=== PATIENT | female | born 1965 | race Caucasian/White ===

== ENCOUNTER 2023-08-26 13:49 | Observation (INO) | payer OTHER ==
[2023-08-26] MEDS ORDERED: DILTIAZEM DRIP BOLUS FROM BAG 1 MG SOLN IV ONE (14:25)
--- NOTE | 2023-08-26 14:28 | ED ---
General Adult HPI - General Chief complaint: Chest Pain Stated complaint: chest pain Time Seen by Provider: 08/26/23 13:57 Source: patient, EMS, RN notes reviewed Mode of arrival: EMS Limitations: no limitations - History of Present Illness Initial comments: Patient is a pleasant 57-year-old female presenting to the emergency department with concerns for chest discomfort. Onset of symptoms was a couple hours ago while doing dishes. Patient has rash or in her left upper chest. Patient has mild associated dyspnea. No nausea. No diaphoresis. Patient has had some exertional fatigue and dyspnea over the past couple of days. Patient stopped eliquis secondary to thinking her symptoms were caused from that. Patient states she was started on eliquis secondary to postoperative prevention of blood clots following stomach stapling surgery she had 9 days ago. No abdominal pain. No leg pain or leg swelling. - Related Data Home Medications Medication Instructions Recorded Confirmed Omeprazole 20 mg PO BID 08/26/23 08/26/23 Ondansetron [Zofran] 4 mg PO QID PRN 08/26/23 08/26/23 Scopolamine [Scopolamine 1 MG/72 1 patch TRANSDERM Q72H PRN 08/26/23 08/26/23 HR patch] atenoloL 50 mg PO BID 08/26/23 08/26/23 atenoloL 50 mg PO DAILY PRN 08/26/23 08/26/23 traMADol HCL 50 mg PO Q6H PRN 08/26/23 08/26/23 Allergies Allergy/AdvReac Type Severity Reaction Status Date / Time Sulfa (Sulfonamide Allergy Difficulty Verified 08/26/23 15:09 Antibiotics) breathing codeine AdvReac Vomiting Verified 08/26/23 15:09 metoclopramide [From Reglan] AdvReac Rapid Verified 08/26/23 15:09 Heart Rate morphine AdvReac Rapid Verified 08/26/23 15:09 Heart Rate Review of Systems ROS Statement: Those systems with pertinent positive or pertinent negative responses have been documented in the HPI. ROS Other: All systems not noted in ROS Statement are negative. Constitutional: Denies: fever Eyes: Denies: eye pain ENT: Denies: ear pain Respiratory: Reports: as per HPI. Denies: cough Cardiovascular: Reports: as per HPI, chest pain, palpitations Endocrine: Denies: fatigue Gastrointestinal: Denies: abdominal pain Skin: Denies: rash Neurological: Denies: weakness Past Medical History Past Medical History: Hypertension History of Any Multi-Drug Resistant Organisms: None Reported Past Surgical History: Bariatric Surgery Additional Past Surgical History / Comment(s): Gastric Bypass Past Psychological History: No Psychological Hx Reported Past Drug Use History: Marijuana General Exam Limitations: no limitations General appearance: alert, in no apparent distress Head exam: Present: normocephalic Eye exam: Present: normal appearance Respiratory exam: Present: normal lung sounds bilaterally Cardiovascular Exam: Present: tachycardia, irregular rhythm Expanded Peripheral pulses: 2+: Radial (R), Radial (L), Dorsalis Pedis (R), Dorsalis Pedis (L) GI/Abdominal exam: Present: soft. Absent: tenderness Extremities exam: Present: normal inspection. Absent: pedal edema, calf tenderness Neurological exam: Present: alert Psychiatric exam: Present: normal affect, normal mood Skin exam: Present: normal color Course Vital Signs 08/26/23 08/26/23 08/26/23 13:53 14:10 14:20 Temperature 98.4 F Pulse Rate 128 H 144 H 151 H Respiratory 18 18 20 Rate Blood Pressure 96/50 95/71 92/74 O2 Sat by Pulse 100 99 Oximetry 08/26/23 08/26/23 08/26/23 14:31 14:40 14:45 Temperature Pulse Rate 151 H 144 H Respiratory 18 18 Rate Blood Pressure 92/74 103/69 O2 Sat by Pulse 94 L 97 Oximetry 08/26/23 08/26/23 08/26/23 14:50 14:51 15:00 Temperature Pulse Rate 152 H 129 H 110 H Respiratory 12 18 27 H Rate Blood Pressure 103/69 118/67 118/87 O2 Sat by Pulse 93 L 92 L 99 Oximetry 08/26/23 08/26/23 08/26/23 15:10 15:20 15:29 Temperature Pulse Rate 118 H 116 H 121 H Respiratory 31 H 12 20 Rate Blood Pressure 89/55 158/101 132/117 O2 Sat by Pulse 99 96 98 Oximetry 08/26/23 08/26/23 08/26/23 15:30 15:40 15:44 Temperature Pulse Rate 111 H 80 86 Respiratory 10 L 8 L 18 Rate Blood Pressure 158/101 132/117 132/117 O2 Sat by Pulse 96 95 96 Oximetry 08/26/23 08/26/2323 15:50 16:00 16:04 Temperature Pulse Rate 86 84 84 Respiratory 12 22 Rate Blood Pressure 103/63 103/63 97/70 O2 Sat by Pulse 97 95 97 Oximetry EKG Findings - EKG Results: EKG: interpreted by ERMD (Left axis. Nonspecific ST-T.), normal QRS EKG shows: tachycardia, atrial fibrillation Medical Decision Making - Medical Decision Making Was pt. sent in by a medical professional or institution ([facility], [employer], urgent care, hospital, or retirement...) When possible be specific @ -No Did you speak to anyone other than the patient for history (EMS, parent, family, police, friend...)? What history was obtained from this source @ -No Did you review nursing and triage notes (agree or disagree)? Why? @ -I reviewed and agree with nursing and triage notes Were old charts reviewed (outside hosp., previous admission, EMS record, old EKG, old radiological studies, urgent care reports/EKG's, retirement records)? Report findings @ -No old charts were reviewed Differential Diagnosis (chest pain, altered mental status, abdominal pain women, abdominal pain men, vaginal bleeding, weakness, fever, dyspnea, syncope, headache, dizziness, GI bleed, back pain, seizure, CVA, palpatations, mental health, musculoskeletal)? @ -Differential Chest Pain: Stable Angina, Unstable Angina, STEMI, NSTEMI Aortic Dissection, Pneumothorax, Musculoskeletal, Esophageal Spasm GERD, Cholecystitis, Pancreatitis, Zoster, this is not meant to be an all-inclusive list. EKG interpreted by me (3pts min.). @ -As above X-rays interpreted by me (1pt min.). @ -Chest x-ray shows no acute process CT interpreted by me (1pt min.). @ -None done U/S interpreted by me (1pt. min.). @ -None done What testing was considered but not performed or refused? (CT, X-rays, U/S, labs)? Why? @ -None What meds were considered but not given or refused? Why? @ -None Did you discuss the management of the patient with other professionals (professionals i.e. [facility], [employer], lab, RT, psych nurse, child welfare social worker, human resources advisor, teacher, data officer, case operator)? Give summary @ -Case was discussed with practitioner Fang, who will admit covering Dr. Mathis, who will admit covering hospital call. Was smoking cessation discussed for >3mins.? @ -No Was critical care preformed (if so, how long)? @ -32 minutes critical care time Were there social determinants of health that impacted care today? How? (Homelessness, low income, unemployed, alcoholism, drug addiction, transportation, low edu. Level, literacy, decrease access to med. care, [facility], rehab)? @ -No Was there de-escalation of care discussed even if they declined (Discuss DNR or withdrawal of care, Hospice)? DNR status @ -No What co-morbidities impacted this encounter? (DM, HTN, Smoking, COPD, CAD, Cancer, CVA, ARF, Chemo, Hep., AIDS, mental health diagnosis, sleep apnea, morbid obesity)? @ -None Was patient admitted / discharged? Hospital course, mention meds given and route, prescriptions, significant lab abnormalities, going to OR and other pertinent info. @ -Patient reevaluated and symptoms have improved. Patient still having some mild chest discomfort. Heart rate has improved 84. Patient will be admitted, orders written. Cardiology will be placed on consult. Undiagnosed new problem with uncertain prognosis? @ -No Drug Therapy requiring intensive monitoring for toxicity (Heparin, Nitro, Insulin, Cardizem)? @ -Patient is on Cardizem drip Were any procedures done? @ -No Diagnosis/symptom? @ -A. fib with RVR Acute, or Chronic, or Acute on Chronic? @ -Acute Uncomplicated (without systemic symptoms) or Complicated (systemic symptoms)? @ -default Side effects of treatment? @ -No Exacerbation, Progression, or Severe Exacerbation? @ -No Poses a threat to life or bodily function? How? (Chest pain, [place], [place], pneumonia, PE, COPD, DKA, ARF, appy, cholecystitis, CVA, Diverticulitis, Homicidal, Suicidal, threat to staff... and all critical care pts) @ -No - Lab Data Result diagrams: 08/26/23 14:25 08/26/23 14:25 Lab Results 08/26/23 08/26/23 08/26/23 Range/Units 14:25 14:25 14:25 WBC 7.7 (3.8-10.6) k/uL RBC 3.70 L (3.80-5.40) m/uL Hgb 11.6 (11.4-16.0) gm/dL Hct 34.3 (34.0-46.0) % MCV 92.7 (80.0-100.0) fL MCH 31.4 (25.0-35.0) pg MCHC 33.9 (31.0-37.0) g/dL RDW 13.2 (11.5-15.5) % Plt Count 369 (150-450) k/uL MPV 7.8 Neutrophils % 72 % Lymphocytes % 18 % Monocytes % 5 % Eosinophils % 3 % Basophils % 0 % Neutrophils # 5.5 (1.3-7.7) k/uL Lymphocytes # 1.4 (1.0-4.8) k/uL Monocytes # 0.4 (0-1.0) k/uL Eosinophils # 0.3 (0-0.7) k/uL Basophils # 0.0 (0-0.2) k/uL PT 10.8 (9.0-12.0) sec INR 1.0 (<1.2) APTT 20.6 L (22.0-30.0) sec Sodium 140 (137-145) mmol/L Potassium 3.7 (3.5-5.1) mmol/L Chloride 108 H (98-107) mmol/L Carbon Dioxide 17 L (22-30) mmol/L Anion Gap 15 mmol/L BUN 24 H (7-17) mg/dL Creatinine 0.86 (0.52-1.04) mg/dL Est GFR (CKD-EPI)AfAm 86 (>60 ml/min/1.73 sqM) Est GFR (CKD-EPI)NonAf 75 (>60 ml/min/1.73 sqM) Glucose 88 (74-99) mg/dL Calcium 9.4 (8.4-10.2) mg/dL Magnesium 1.7 (1.6-2.3) mg/dL Total Bilirubin 1.3 (0.2-1.3) mg/dL AST 33 (14-36) U/L ALT 20 (4-34) U/L Alkaline Phosphatase 62 (38-126) U/L Troponin I (0.000-0.034) ng/mL NT-Pro-B Natriuret Pep 201 pg/mL Total Protein 6.7 (6.3-8.2) g/dL Albumin 3.6 (3.5-5.0) g/dL TSH 1.200 (0.465-4.680) mIU/L Free T4 2.49 H (0.78-2.19) ng/dL 08/26/23 Range/Units 14:25 WBC (3.8-10.6) k/uL RBC (3.80-5.40) m/uL Hgb (11.4-16.0) gm/dL Hct (34.0-46.0) % MCV (80.0-100.0) fL MCH (25.0-35.0) pg MCHC (31.0-37.0) g/dL RDW (11.5-15.5) % Plt Count (150-450) k/uL MPV Neutrophils % % Lymphocytes % % Monocytes % % Eosinophils % % Basophils % % Neutrophils # (1.3-7.7) k/uL Lymphocytes # (1.0-4.8) k/uL Monocytes # (0-1.0) k/uL Eosinophils # (0-0.7) k/uL Basophils # (0-0.2) k/uL PT (9.0-12.0) sec INR (<1.2) APTT (22.0-30.0) sec Sodium (137-145) mmol/L Potassium (3.5-5.1) mmol/L Chloride (98-107) mmol/L Carbon Dioxide (22-30) mmol/L Anion Gap mmol/L BUN (7-17) mg/dL Creatinine (0.52-1.04) mg/dL Est GFR (CKD-EPI)AfAm (>60 ml/min/1.73 sqM) Est GFR (CKD-EPI)NonAf (>60 ml/min/1.73 sqM) Glucose (74-99) mg/dL Calcium (8.4-10.2) mg/dL Magnesium (1.6-2.3) mg/dL Total Bilirubin (0.2-1.3) mg/dL AST (14-36) U/L ALT (4-34) U/L Alkaline Phosphatase (38-126) U/L Troponin I 0.024 (0.000-0.034) ng/mL NT-Pro-B Natriuret Pep pg/mL Total Protein (6.3-8.2) g/dL Albumin (3.5-5.0) g/dL TSH (0.465-4.680) mIU/L Free T4 (0.78-2.19) ng/dL Critical Care Time Critical Care Time: Yes Total Critical Care Time: 32 Disposition Clinical Impression: Atrial fibrillation with RVR Disposition: ADMITTED IP TO THIS HOSP Is patient prescribed a controlled substance at d/c from ED?: No Referrals: Dwight Aguirre DO [Primary Care Provider] - 1-2 days Time of Disposition: 16:48
[2023-08-26] MEDS ORDERED: DILTIAZEM 125 MG in SODIUM CHLORIDE 0.9% 100 ML IV SCH (14:30)
--- NOTE | 2023-08-26 14:40 | XR ---
EXAMINATION TYPE: XR chest 2V DATE OF EXAM: 08/26/2023 COMPARISON: NONE HISTORY: Dysrhythmia TECHNIQUE: Frontal and lateral views of the chest are obtained. FINDINGS: There is no focal air space opacity, pleural effusion, or pneumothorax seen. The cardiac silhouette size is within normal limits. The osseous structures are intact. IMPRESSION: No acute cardiopulmonary process.
[2023-08-26 14:45] LABS: Basophils % (A) 0 %; Eosinophils # (A) 0.3 k/uL (0-0.7); Eosinophils % (A) 3 %; HCT 34.3 % (34.0-46.0); HGB 11.6 gm/dL (11.4-16.0); Lymphocytes # (A) 1.4 k/uL (1.0-4.8); Lymphocytes % (A) 18 %; MCH 31.4 pg (25.0-35.0); MCHC 33.9 g/dL (31.0-37.0); MCV 92.7 fL (80.0-100.0); Mean Platelet Volume 7.8; Monocytes # (A) 0.4 k/uL (0-1.0); Monocytes % (A) 5 %; Neutrophils # (A) 5.5 k/uL (1.3-7.7); Neutrophils % (A) 72 %; Platelet Count 369 k/uL (150-450); RDW 13.2 % (11.5-15.5); WBC 7.7 k/uL (3.8-10.6)
[2023-08-26 15:04] LABS: Prothrombin Time 10.8 sec (9.0-12.0)
[2023-08-26 15:18] LABS: Partial Thromboplastin Time 20.6 sec (22.0-30.0)
[2023-08-26 15:24] LABS: ALT 20 U/L (4-34); AST 33 U/L (14-36); African American GFR (CKD) 86 (>60 ml/min/1.73 sqM); Albumin 3.6 g/dL (3.5-5.0); Alkaline Phosphatase 62 U/L (38-126); Anion Gap 15 mmol/L; Blood Urea Nitrogen 24 mg/dL (7-17); Calcium 9.4 mg/dL (8.4-10.2); Carbon Dioxide 17 mmol/L (22-30); Chloride 108 mmol/L (98-107); Glucose 88 mg/dL (74-99); Magnesium 1.7 mg/dL (1.6-2.3); Non-African American GFR(CKD) 75 (>60 ml/min/1.73 sqM); Potassium 3.7 mmol/L (3.5-5.1); Sodium 140 mmol/L (137-145); Total Bilirubin 1.3 mg/dL (0.2-1.3); Total Protein 6.7 g/dL (6.3-8.2)
[2023-08-26 15:33] LABS: NT-Pro-B-Type Natriuretic Pept 201 pg/mL
[2023-08-26 15:41] LABS: T4, Free (Free Thyroxine) 2.49 ng/dL (0.78-2.19)
[2023-08-26] MEDS ORDERED: NALOXONE 0.4 MG/ML 1 ML VIAL IV PRN (16:48)
[2023-08-27 08:36] LABS: Basophils % (A) 0 %; Eosinophils # (A) 0.3 k/uL (0-0.7); Eosinophils % (A) 3 %; HCT 32.7 % (34.0-46.0); HGB 10.8 gm/dL (11.4-16.0); Lymphocytes # (A) 1.3 k/uL (1.0-4.8); Lymphocytes % (A) 17 %; MCH 30.8 pg (25.0-35.0); MCHC 33.1 g/dL (31.0-37.0); MCV 93.2 fL (80.0-100.0); Mean Platelet Volume 7.9; Monocytes # (A) 0.5 k/uL (0-1.0); Monocytes % (A) 6 %; Neutrophils # (A) 5.6 k/uL (1.3-7.7); Neutrophils % (A) 72 %; Platelet Count 326 k/uL (150-450); RBC 3.51 m/uL (3.80-5.40); RDW 13.7 % (11.5-15.5); WBC 7.8 k/uL (3.8-10.6)
[2023-08-27 08:56] LABS: ALT 18 U/L (4-34); AST 27 U/L (14-36); African American GFR (CKD) >90 (>60 ml/min/1.73 sqM); Albumin 3.4 g/dL (3.5-5.0); Alkaline Phosphatase 51 U/L (38-126); Anion Gap 11 mmol/L; Blood Urea Nitrogen 21 mg/dL (7-17); Calcium 8.8 mg/dL (8.4-10.2); Carbon Dioxide 22 mmol/L (22-30); Chloride 107 mmol/L (98-107); Glucose 79 mg/dL (74-99); Non-African American GFR(CKD) 83 (>60 ml/min/1.73 sqM); Potassium 3.5 mmol/L (3.5-5.1); Sodium 140 mmol/L (137-145); Total Bilirubin 0.9 mg/dL (0.2-1.3); Total Protein 6.1 g/dL (6.3-8.2)
[2023-08-27] MEDS ORDERED: PANTOPRAZOLE 40 MG/10 ML VIAL IV SCH (09:00)
[2023-08-27] MEDS: atenoloL 50 MG TAB PO SCH ×2 (10:15→21:10)
--- NOTE | 2023-08-27 12:25 | CA ---
Transthoracic Echo Report Name: Jacqueline Carvajal Age: 57 Gender: F : 1965 Exam Date: 08/27/2023 09:19 Exam Location: [facility] Ht (in): 62 Wt (lb): 190 Ordering Physician: Bandar Miranda DO Attending/Referring Phys: Document Image Technician Myrna Lee RDCS Procedure CPT: Indications: a fib Cardiac Hx: Technical Quality: Fair Contrast 1: Total Dose (mL): Contrast 2: Total Dose (mL): MEASUREMENTS (Male / Female) Normal Values 2D ECHO LV Diastolic Diameter PLAX 3.4 cm 4.2 - 5.9 / 3.9 - 5.3 cm LV Systolic Diameter PLAX 2.3 cm IVS Diastolic Thickness 1.7 cm 0.6 - 1.0 / 0.6 - 0.9 cm LVPW Diastolic Thickness 1.5 cm 0.6 - 1.0 / 0.6 - 0.9 cm LV Relative Wall Thickness 1.0 RV Internal Dim ED PLAX 2.6 cm LA Volume 52.5 cm??? 18 - 58 / 22 - 52 cm??? M-MODE Aortic Root Diameter MM 3.3 cm LA Systolic Diameter MM 5.1 cm LA Ao Ratio MM 1.6 AV Cusp Separation MM 2.0 cm DOPPLER AV Peak Velocity 165.5 cm/s AV Peak Gradient 10.9 mmHg AV Mean Velocity 116.3 cm/s AV Mean Gradient 6.0 mmHg AV Velocity Time Integral 27.0 cm LVOT Peak Velocity 122.7 cm/s LVOT Peak Gradient 6.0 mmHg LVOT Velocity Time Integral 24.5 cm MV Area PHT 2.7 cm??? Mitral E Point Velocity 78.0 cm/s Mitral A Point Velocity 117.0 cm/s Mitral E to A Ratio 0.7 MV Deceleration Time 284.2 ms MV E' Velocity 4.9 cm/s Mitral E to MV E' Ratio 15.9 TR Peak Velocity 175.5 cm/s TR Peak Gradient 12.3 mmHg Right Ventricular Systolic Press 17.3 mmHg FINDINGS Left Ventricle Moderately increased left ventricular wall thickness. Left ventricular cavity size normal. Normal left ventricular systolic function with no obvious regional wall motion abnormalities. Left ventricular ejection fraction is estimated at 55-60%. Right Ventricle Normal right ventricular size and function. Right ventricular systolic pressure within normal limits. Right Atrium Normal right atrial size. Left Atrium Normal left atrial size. Mitral Valve Structurally normal mitral valve. Mild mitral annular calcification. Mild mitral regurgitation. Aortic Valve Trileaflet aortic valve. No aortic valve stenosis or regurgitation. Tricuspid Valve Structurally normal tricuspid valve. Mild tricuspid regurgitation. Pulmonic Valve Trace pulmonic regurgitation. Pericardium No pericardial effusion. Aorta Normal size aortic root and proximal ascending aorta. CONCLUSIONS LVH with preserved systolic function Previewed by: Dr. Wicho Ambrocio MD (Electronically Signed) Final Date: 27 August 2023 12:24
--- NOTE | 2023-08-27 12:26 | P.HPIM ---
History of Present Illness H&P Date: 08/27/23 Chief Complaint: Chest pain 57-year-old female, history of hypertension, presenting to the emergency department with concerns for chest discomfort. Onset of symptoms was a couple hours ago while doing dishes. Patient has rash or in her left upper chest. Patient has mild associated dyspnea. No nausea. No diaphoresis. Patient has had some exertional fatigue and dyspnea over the past couple of days. Patient stopped eliquis secondary to thinking her symptoms were caused from that. Patient states she was started on eliquis secondary to postoperative prevention of blood clots following stomach stapling surgery she had 9 days ago. No abdominal pain. No leg pain or leg swelling. Blood work completed in ED reveals WBC of 7.8, hemoglobin of 11.6 dropping down to 10.8 this morning, d-dimer is elevated at 5.73, sodium of 140, potassium 3.5, BUN/creatinine of 21/0.79, initial troponin upon arrival to ED was 0.0-4 and has trended up to 0.036, TSH normal at 1.2, free T4 of 2.49, free T3 is pending EKG shows atrial fibrillation with RVR with heart rate of [address] depression Chest x-ray is negative for any acute cardiopulmonary process -- In the ED patient was placed on IV Cardizem infusion which improved heart rate to 84 - Patient is being admitted for further evaluation and treatment Review of Systems REVIEW OF SYSTEMS: CONSTITUTIONAL: No fever, no malaise, no fatigue. HEENT: No recent visual problems or hearing problems. Denied any sore throat. CARDIOVASCULAR: Complains of chest pain, orthopnea, PND, no palpitations, no syncope. PULMONARY: No shortness of breath, no cough, no hemoptysis. GASTROINTESTINAL: No diarrhea, no nausea, no vomiting, no abdominal pain. NEUROLOGICAL: No headaches, no weakness, no numbness. HEMATOLOGICAL: Denies any bleeding or petechiae. GENITOURINARY: Denies any burning micturition, frequency, or urgency. MUSCULOSKELETAL/RHEUMATOLOGICAL: Denies any joint pain, swelling, or any muscle pain. ENDOCRINE: Denies any polyuria or polydipsia. The rest of the 14-point review of systems is negative. Past Medical History Past Medical History: Hypertension History of Any Multi-Drug Resistant Organisms: None Reported Past Surgical History: Bariatric Surgery Additional Past Surgical History / Comment(s): Gastric Bypass Past Psychological History: No Psychological Hx Reported Past Drug Use History: Marijuana Medications and Allergies Home Medications Medication Instructions Recorded Confirmed Type Omeprazole 20 mg PO BID 08/26/23 08/26/23 History Ondansetron [Zofran] 4 mg PO QID PRN 08/26/23 08/26/23 History Scopolamine [Scopolamine 1 MG/72 1 patch TRANSDERM Q72H PRN 08/26/23 08/26/23 History HR patch] atenoloL 50 mg PO BID 08/26/23 08/26/23 History atenoloL 50 mg PO DAILY PRN 08/26/23 08/26/23 History traMADol HCL 50 mg PO Q6H PRN 08/26/23 08/26/23 History Allergies Allergy/AdvReac Type Severity Reaction Status Date / Time Sulfa (Sulfonamide Allergy Difficulty Verified 08/26/23 15:09 Antibiotics) breathing codeine AdvReac Vomiting Verified 08/26/23 15:09 metoclopramide [From Reglan] AdvReac Rapid Verified 08/26/23 15:09 Heart Rate morphine AdvReac Rapid Verified 08/26/23 15:09 Heart Rate Physical Exam Vitals: Vital Signs Temp Pulse Pulse Resp BP BP Pulse Ox 08/27/23 11:16 75 16 129/82 99 08/27/23 10:20 98.4 F 87 18 137/95 98 08/27/23 07:35 98.4 F 84 17 127/78 98 08/27/23 05:47 74 18 120/72 99 08/27/23 01:47 71 18 112/71 97 08/26/23 23:11 73 18 98/66 98 08/26/23 19:55 78 18 107/83 08/26/23 19:33 18 08/26/23 19:30 74 12 96/76 08/26/23 19:00 80 12 96/76 08/26/23 18:30 80 27 H 96/76 08/26/23 18:00 81 17 96/76 08/26/23 17:30 80 12 96/76 08/26/23 17:10 79 24 94/67 08/26/23 17:00 81 16 116/95 08/26/23 16:50 81 18 116/95 98 08/26/23 16:40 82 18 132/94 97 08/26/23 16:30 82 18 96/69 99 08/26/23 16:20 82 16 96/69 98 08/26/23 16:10 84 19 97/70 94 L 08/26/23 16:04 84 97/70 97 08/26/23 16:00 84 22 103/63 95 08/26/23 15:50 86 12 103/63 97 08/26/23 15:44 86 18 132/117 96 08/26/23 15:40 80 8 L 132/117 95 08/26/23 15:30 111 H 10 L 158/101 96 08/26/23 15:29 121 H 20 132/117 98 08/26/23 15:20 116 H 12 158/101 96 08/26/23 15:10 118 H 31 H 89/55 99 08/26/23 15:00 110 H 27 H 118/87 99 08/26/23 14:51 129 H 18 118/67 92 L 08/26/23 14:50 152 H 12 103/69 93 L 08/26/23 14:45 144 H 18 103/69 97 08/26/23 14:40 151 H 18 94 L 08/26/23 14:31 92/74 08/26/23 14:20 151 H 20 92/74 99 08/26/23 14:10 144 H 18 95/71 08/26/23 13:53 98.4 F 128 H 18 96/50 100 PHYSICAL EXAMINATION: GENERAL: The patient is alert and oriented x3, not in any acute distress. Well developed, well nourished. HEENT: Pupils are round and equally reacting to light. EOMI. No scleral icterus. No conjunctival pallor. Normocephalic, atraumatic. No pharyngeal erythema. No thyromegaly. CARDIOVASCULAR: S1 and S2 present. No murmurs, rubs, or gallops. PULMONARY: Chest is clear to auscultation, no wheezing or crackles. ABDOMEN: Soft, nontender, nondistended, normoactive bowel sounds. No palpable organomegaly. MUSCULOSKELETAL: No joint swelling or deformity. EXTREMITIES: No cyanosis, clubbing, or pedal edema. NEUROLOGICAL: Gross neurological examination did not reveal any focal deficits. SKIN: No rashes. Results CBC & Chem 7: 08/27/23 06:54 08/27/23 06:54 Labs: Abnormal Lab Results - Last 24 Hours (Table) 08/26/23 08/26/23 08/26/23 Range/Units 14:25 14:25 14:25 RBC 3.70 L (3.80-5.40) m/uL Hgb (11.4-16.0) gm/dL Hct (34.0-46.0) % APTT 20.6 L (22.0-30.0) sec D-Dimer (<0.60) mg/L FEU Chloride 108 H (98-107) mmol/L Carbon Dioxide 17 L (22-30) mmol/L BUN 24 H (7-17) mg/dL Troponin I (0.000-0.034) ng/mL Total Protein (6.3-8.2) g/dL Albumin (3.5-5.0) g/dL Free T4 2.49 H (0.78-2.19) ng/dL 08/26/23 08/27/23 08/27/23 Range/Units 21:00 06:54 06:54 RBC 3.51 L (3.80-5.40) m/uL Hgb 10.8 L (11.4-16.0) gm/dL Hct 32.7 L (34.0-46.0) % APTT (22.0-30.0) sec D-Dimer (<0.60) mg/L FEU Chloride (98-107) mmol/L Carbon Dioxide (22-30) mmol/L BUN 21 H (7-17) mg/dL Troponin I 0.036 H* (0.000-0.034) ng/mL Total Protein 6.1 L (6.3-8.2) g/dL Albumin 3.4 L (3.5-5.0) g/dL Free T4 (0.78-2.19) ng/dL 08/27/23 Range/Units 09:34 RBC (3.80-5.40) m/uL Hgb (11.4-16.0) gm/dL Hct (34.0-46.0) % APTT (22.0-30.0) sec D-Dimer 5.73 H (<0.60) mg/L FEU Chloride (98-107) mmol/L Carbon Dioxide (22-30) mmol/L BUN (7-17) mg/dL Troponin I (0.000-0.034) ng/mL Total Protein (6.3-8.2) g/dL Albumin (3.5-5.0) g/dL Free T4 (0.78-2.19) ng/dL Assessment and Plan Assessment: 1. New onset atrial fibrillation with RVR - Patient has been placed on IV Cardizem infusion; home dose of atenolol 50 mg twice a day since - We will monitor EKG and trend troponin - Consult cardiology for further recommendations 2. Elevated d-dimer/chest pain; we will order stat CT of the chest with PE protocol and bilateral lower extremity venous Doppler - Hold off on anticoagulation until results are available 3. Elevated troponin; possibly rate related; troponin on presentation to ED was within normal range at 0.0-4 with the third set increasing to 0.36 4. Anemia; hemoglobin down to 10.8 from 11.6 upon admission; no complaints of hemoptysis, hematemesis or any overt bleeding - We will monitor H&H closely; order stool occult blood; start patient on Protonix - Further recommendations pending test results 5. Elevated free T4; TSH remains within normal limits; free T3 is pending - Likely sick euthyroid versus hyperthyroidism - Consult endocrinology 6. Mild ESSIE; BUN slightly elevated at 24 with normal creatinine of 0.86 upon admission; BUN trending down to 21; increased oral fluid intake is recommended; we will monitor strict CORETTA's, daily weights, renal function and electrolytes - Avoid nephrotoxins and hypotension 7. Hypertension; continue with home dose of atenolol 50 mg twice a day DVT prophylaxis; SCDs/subcu heparin CODE STATUS; full code
--- NOTE | 2023-08-27 13:26 | P.CRDCN ---
History of Present Illness Consult date: 08/27/23 Consult reason: atrial fibrillation History of present illness: This is Riley Kimball NP, I'm dictating on behalf of Dr. Ambrocio's H&P and A&P The patient was interviewed and examined. HPI: Patient is a pleasant 57-year-old female with a past medical history of hypertension and recent gastric bypass surgery who presented to the hospital after experiencing chest tightness and weakness at home. Patient reports that she was doing dishes at the sink in her home, when she suddenly felt like a band had been wrapped around her chest. She states she also felt weak at that time. She reports that she went into her living room and sat in a chair, trying to relax. She states at that time she felt like her heart was "flopping" in her chest. She got concerned and called 911 to bring her to the hospital for evaluation. In the emergency department, and the patient was found to be in new onset atrial fibrillation, with a heart rate in the 140s. Patient was given one bolus of IV Cardizem, which did improve her heart rate significantly. C ardiology was subsequently consulted for the new onset A. fib. Today the patient reports she's feeling good. Patient converted at some point during the night, and is now in normal sinus rhythm on telemetry. She is denying chest pain, shortness of breath, and heart palpitations. ROS: [No fever, chills, or rigors] [no cough, phlegm, or expectoration] [no nausea, vomiting, or diarrhea] [no hematuria, dysuria] [no musculoskelatal complaints] [no strokes or seizures] [no skin lesions] EXAMINATION: GENERAL: Well-appearing, well-nourished and in no acute distress. NECK: Supple without JVD or thyromegaly. LUNGS: Breath sounds clear to auscultation bilaterally. Respiration equal and unlabored. No wheezes, rales or rhonchi. HEART: Regular rate and rhythm without murmurs, rubs or gallops. S1 and S2 heard. EXTREMITIES: Normal range of motion, no edema. No clubbing or cyanosis. Peripheral pulses intact and strong. REVIEW OF LABS, ECG & MEDICAL DATA: LABS: White count 7.8, hemoglobin 10.8, d-dimer 5.73, sodium 140, potassium 3.5, BUN 21, creatinine 0.79, troponin 3-0.024, 0.034, 0.036, BNP 201, TSH 1.2 EKG: Atrial fibrillation with rapid ventricular response IMAGING: Chest x-ray dated 08/26/2023 demonstrates no acute cardiopulmonary process. Echocardiogram dated 08/26/2023 demonstrates LVH with preserved systolic function. VITALS: Temp 98.4, pulse 84, respirations 17, blood pressure 127/78, O2 saturation 98% on room air IMPRESSION: 1. New onset atrial fibrillation with rapid ventricular response. 2. History of hypertension 3. History of prediabetes PLAN: Check d-dimer. If elevated recommend CT angiogram and bilateral lower extremity Dopplers. Patient likely has postoperative new onset A. fib, which will likely resolve on its own after surgery is completely healed. Resume atenolol 50 mg twice a day. Discontinue Cardizem. Obtained stat echocardiogram, demonstrates left ventricular hypertrophy with preserved systolic function, with no valvular abnormalities. If CT angiogram and Dopplers are negative, patient may be discharged from a cardiology standpoint. No need for current anticoagulation, as patient was only in A. fib for a short period of time. She can follow-up in the office. Thank you for the consult and allowing us to participate in the care of this patient. Past Medical History Past Medical History: Hypertension History of Any Multi-Drug Resistant Organisms: None Reported Past Surgical History: Bariatric Surgery Additional Past Surgical History / Comment(s): Gastric Bypass Past Anesthesia/Blood Transfusion Reactions: No Reported Reaction Past Psychological History: No Psychological Hx Reported Past Drug Use History: Marijuana Medications and Allergies Home Medications Medication Instructions Recorded Confirmed Type Omeprazole 20 mg PO BID 08/26/23 08/26/23 History Ondansetron [Zofran] 4 mg PO QID PRN 08/26/23 08/26/23 History Scopolamine [Scopolamine 1 MG/72 1 patch TRANSDERM Q72H PRN 08/26/23 08/26/23 History HR patch] atenoloL 50 mg PO BID 08/26/23 08/26/23 History atenoloL 50 mg PO DAILY PRN 08/26/23 08/26/23 History traMADol HCL 50 mg PO Q6H PRN 08/26/23 08/26/23 History Allergies Allergy/AdvReac Type Severity Reaction Status Date / Time Sulfa (Sulfonamide Allergy Difficulty Verified 08/26/23 15:09 Antibiotics) breathing codeine AdvReac Vomiting Verified 08/26/23 15:09 metoclopramide [From Reglan] AdvReac Rapid Verified 08/26/23 15:09 Heart Rate morphine AdvReac Rapid Verified 08/26/23 15:09 Heart Rate Physical Exam Vitals: Vital Signs Temp Pulse Pulse Resp BP BP Pulse Ox 08/27/23 11:19 98.8 F 76 16 129/82 99 08/27/23 11:16 75 16 129/82 99 08/27/23 10:20 98.4 F 87 18 137/95 98 08/27/23 07:35 98.4 F 84 17 127/78 98 08/27/23 05:47 74 18 120/72 99 08/27/23 01:47 71 18 112/71 97 08/26/23 23:11 73 18 98/66 98 08/26/23 19:55 78 18 107/83 08/26/23 19:33 18 08/26/23 19:30 74 12 96/76 08/26/23 19:00 80 12 96/76 08/26/23 18:30 80 27 H 96/76 08/26/23 18:00 81 17 96/76 08/26/23 17:30 80 12 96/76 08/26/23 17:10 79 24 94/67 08/26/23 17:00 81 16 116/95 08/26/23 16:50 81 18 116/95 98 08/26/23 16:40 82 18 132/94 97 08/26/23 16:30 82 18 96/69 99 08/26/23 16:20 82 16 96/69 98 08/26/23 16:10 84 19 97/70 94 L 08/26/23 16:04 84 97/70 97 08/26/23 16:00 84 22 103/63 95 08/26/23 15:50 86 12 103/63 97 08/26/23 15:44 86 18 132/117 96 08/26/23 15:40 80 8 L 132/117 95 08/26/23 15:30 111 H 10 L 158/101 96 08/26/23 15:29 121 H 20 132/117 98 08/26/23 15:20 116 H 12 158/101 96 08/26/23 15:10 118 H 31 H 89/55 99 08/26/23 15:00 110 H 27 H 118/87 99 08/26/23 14:51 129 H 18 118/67 92 L 08/26/23 14:50 152 H 12 103/69 93 L 08/26/23 14:45 144 H 18 103/69 97 08/26/23 14:40 151 H 18 94 L 08/26/23 14:31 92/74 08/26/23 14:20 151 H 20 92/74 99 08/26/23 14:10 144 H 18 95/71 08/26/23 13:53 98.4 F 128 H 18 96/50 100 Intake and Output 08/26/23 08/27/23 08/27/23 22:59 06:59 14:59 Other: Weight 86.183 kg Results 08/27/23 06:54 08/27/23 06:54 Cardiac Enzymes 08/26/23 08/26/23 08/26/23 Range/Units 14:25 14:25 18:14 AST 33 (14-36) U/L Troponin I 0.024 0.034 (0.000-0.034) ng/mL 08/26/23 08/27/23 Range/Units 21:00 06:54 AST 27 (14-36) U/L Troponin I 0.036 H* (0.000-0.034) ng/mL Coagulation 08/26/23 Range/Units 14:25 PT 10.8 (9.0-12.0) sec APTT 20.6 L (22.0-30.0) sec CBC 08/26/23 08/27/23 Range/Units 14:25 06:54 WBC 7.7 7.8 (3.8-10.6) k/uL RBC 3.70 L 3.51 L (3.80-5.40) m/uL Hgb 11.6 10.8 L (11.4-16.0) gm/dL Hct 34.3 32.7 L (34.0-46.0) % Plt Count 369 326 (150-450) k/uL Comprehensive Metabolic Panel 08/26/23 08/27/23 Range/Units 14:25 06:54 Sodium 140 140 (137-145) mmol/L Potassium 3.7 3.5 (3.5-5.1) mmol/L Chloride 108 H 107 (98-107) mmol/L Carbon Dioxide 17 L 22 (22-30) mmol/L BUN 24 H 21 H (7-17) mg/dL Creatinine 0.86 0.79 (0.52-1.04) mg/dL Glucose 88 79 (74-99) mg/dL Calcium 9.4 8.8 (8.4-10.2) mg/dL AST 33 27 (14-36) U/L ALT 20 18 (4-34) U/L Alkaline Phosphatase 62 51 (38-126) U/L Total Protein 6.7 6.1 L (6.3-8.2) g/dL Albumin 3.6 3.4 L (3.5-5.0) g/dL Current Medications Generic Name Dose Route Start Last Admin Trade Name Freq PRN Reason Stop Dose Admin Atenolol 50 mg 08/27/23 09:30 08/27/23 10:15 Atenolol 50 Mg Tab PO 50 mg BID STEPHANIE Administration Heparin Sodium (Porcine) 5,000 unit 08/27/23 16:00 Heparin Sodium,Porcine 5,000 Unit/Ml 1 Ml Vial SQ Q8HR STEPHANIE Naloxone HCl 0.2 mg 08/26/23 16:48 Naloxone 0.4 Mg/Ml 1 Ml Vial IV Q2M PRN Opioid Reversal Pantoprazole Sodium 40 mg 08/28/23 07:30 Pantoprazole 40 Mg Tablet PO DAILY@0730 STEPHANIE Tramadol HCl 50 mg 08/27/23 11:45 Tramadol 50 Mg Tab PO Q6H PRN Pain Intake and Output 08/26/23 08/27/23 08/27/23 22:59 06:59 14:59 Other: Weight 86.183 kg Patient Weight 08/28/23 06:59 Weight 86.183 kg 08/27/23 06:54 08/27/23 06:54
--- NOTE | 2023-08-27 15:23 | US ---
EXAMINATION TYPE: US venous doppler duplex LE BI DATE OF EXAM: 08/27/2023 2:56 PM COMPARISON: NONE CLINICAL INDICATION: Female, 57 years old with history of Elevated d-dimer; elevated D-Dimer, pain bi lateral legs SIDE PERFORMED: bilateral TECHNIQUE: The lower extremity deep venous system is examined utilizing real time linear array sonog mehnaz with graded compression, doppler sonography and color-flow sonography. VESSELS IMAGED: Common Femoral Vein Deep Femoral Vein Greater Saphenous Vein * Femoral Vein Popliteal Vein Small Saphenous Vein * Proximal Calf Veins (* superficial vessels) The deep venous systems of the lower extremities from the common femoral veins to the proximal calf v eins are patent and compressible with augmentable flow throughout. Evaluation of the distal femoral v ein is limited due to the patient's condition. IMPRESSION: No evidence of bilateral large ivania-DVT from the common femoral veins to the proximal calf veins.
--- NOTE | 2023-08-27 15:30 | CT ---
EXAMINATION TYPE: CT chest angio for PE DATE OF EXAM: 08/27/2023 COMPARISON: None HISTORY: CP/Elevated D-dimer. CT DLP: 635.3 mGycm Automated exposure control for dose reduction was used. CONTRAST: CT Chest for pulmonary embolism performed with with IV Contrast, patient injected with 100 ml mL of I sovue 370. FINDINGS: LUNGS: The lungs are grossly clear, there is no concerning parenchymal mass or nodule identified. T here is no pleural effusion or pneumothorax seen. The tracheobronchial tree is patent. MEDIASTINUM: There is satisfactory enhancement of the pulmonary artery and its branches, there is no CT evidence for pulmonary embolism. There are no greater than 1 cm hilar or mediastinal lymph nodes. No pericardial effusion is seen. OTHER: No additional significant abnormality is seen. IMPRESSION: 1. No evidence of pulmonary embolism. 2. No acute cardiopulmonary disease.
[2023-08-27] MEDS: traMADol 50 MG TAB PO PRN ×2 (15:31→21:10)
[2023-08-27] MEDS: HEPARIN SODIUM,PORCINE 5,000 UNIT/ML 1 ML VIAL SQ SCH ×2 (15:31→23:25)
[2023-08-28] MEDS: traMADol 50 MG TAB PO PRN ×3 (06:09→19:41)
[2023-08-28] MEDS: PANTOPRAZOLE 40 MG TABLET PO SCH (06:09)
[2023-08-28] MEDS ORDERED: NITROGLYCERIN SL TABS 0.4 MG TAB SUBLINGUAL PRN (09:07)
[2023-08-28] MEDS: atenoloL 50 MG TAB PO SCH ×2 (09:37→19:41)
[2023-08-28] MEDS: HEPARIN SODIUM,PORCINE 5,000 UNIT/ML 1 ML VIAL SQ SCH ×3 (09:37→23:38)
--- NOTE | 2023-08-28 11:21 | XR ---
Left shoulder. HISTORY: The left shoulder pain COMPARISON: None TECHNIQUE: 3 views left shoulder were obtained. FINDINGS: There is mild degenerative change of the AC joint. There is no fracture, dislocation or focal intraosseous abnormality. IMPRESSION: 1. No evidence of acute trauma. 2. Mild degenerative changes AC joint.
[2023-08-28 11:54] LABS: African American GFR (CKD) >90 (>60 ml/min/1.73 sqM); Anion Gap 11 mmol/L; Basophils % (A) 0 %; Blood Urea Nitrogen 15 mg/dL (7-17); Carbon Dioxide 21 mmol/L (22-30); Chloride 104 mmol/L (98-107); Eosinophils # (A) 0.2 k/uL (0-0.7); Eosinophils % (A) 2 %; Glucose 88 mg/dL (74-99); HCT 34.7 % (34.0-46.0); HGB 11.4 gm/dL (11.4-16.0); Lymphocytes # (A) 1.6 k/uL (1.0-4.8); Lymphocytes % (A) 19 %; MCH 30.1 pg (25.0-35.0); MCHC 32.7 g/dL (31.0-37.0); MCV 91.8 fL (80.0-100.0); Mean Platelet Volume 8.5; Monocytes # (A) 0.5 k/uL (0-1.0); Monocytes % (A) 5 %; Neutrophils # (A) 6.1 k/uL (1.3-7.7); Neutrophils % (A) 72 %; Non-African American GFR(CKD) >90 (>60 ml/min/1.73 sqM); Platelet Count 339 k/uL (150-450); Potassium 3.7 mmol/L (3.5-5.1); RBC 3.78 m/uL (3.80-5.40); RDW 13.5 % (11.5-15.5); Sodium 136 mmol/L (137-145); WBC 8.5 k/uL (3.8-10.6)
--- NOTE | 2023-08-28 15:28 | P.PN ---
Subjective Progress Note Date: 08/28/23 The patient is a 57-year-old female who recently underwent bariatric surgery. She presented to the hospital initially with chest pain and was found to be in atrial fibrillation on arrival to the emergency department. She was started on a Cardizem drip, where she ultimately converted back to sinus mechanism. She continues to report left arm discomfort which will radiate down into her anterior chest wall. EKGs have shown sinus mechanism without ST or T-wave abnormalities. Troponins are negative. Echocardiogram reveals normal LV function with moderate LVH GENERAL: Well-appearing, well-nourished and in no acute distress. NECK: Supple without JVD or thyromegaly. LUNGS: Breath sounds clear to auscultation bilaterally. Respiration equal and unlabored. No wheezes, rales or rhonchi. HEART: Regular rate and rhythm without murmurs, rubs or gallops. S1 and S2 heard. EXTREMITIES: Normal range of motion, no edema. No clubbing or cyanosis. Peripheral pulses intact and strong. TELEMETRY: Sinus rhythm overnight LABS: WBC 0.5, hemoglobin 11.4, hematocrit 34.7, platelet 339, sodium 136, potassium 3 .7, BUN 15, creatinine 0.68, troponin 0.03, 0.03, 0.01 IMPRESSION: New onset A. fib with RVR, conversion with IV Cardizem Left arm and chest pain, likely musculoskeletal History of hypertension History of prediabetes Recent bariatric surgery PLAN: Continue atenolol Patient may be discharged for outpatient follow-up I am dictating on behalf of Dr Wicho Ambrocio's history/physical and assessment/p luz. Objective - Vital Signs Vital signs: Vital Signs Temp 98.5 F 08/28/23 08:00 Pulse 76 08/28/23 13:35 Resp 14 08/28/23 13:35 BP 126/87 08/28/23 11:56 Pulse Ox 98 08/28/23 11:56 FiO2 Intake & Output 08/27/23 08/28/23 08/28/23 18:59 06:59 18:59 Intake Total 240 240 Balance 240 240 Weight 86.183 kg Intake: Oral 240 240 Other: Voiding Method Toilet Toilet # Voids 1 2 - Labs CBC & Chem 7: 08/28/23 11:02 08/28/23 11:02 Labs: Abnormal Lab Results - Last 24 Hours (Table) 08/28/23 08/28/23 Range/Units 11:02 11:02 RBC 3.78 L (3.80-5.40) m/uL Sodium 136 L (137-145) mmol/L Carbon Dioxide 21 L (22-30) mmol/L
--- NOTE | 2023-08-28 17:37 | P.PN ---
Subjective Progress Note Date: 08/28/23 57-year-old female, history of hypertension, presenting to the emergency department with concerns for chest discomfort. Onset of symptoms was a couple hours ago while doing dishes. Patient has rash or in her left upper chest. Patient has mild associated dyspnea. No nausea. No diaphoresis. Patient has had some exertional fatigue and dyspnea over the past couple of days. Patient stopped eliquis secondary to thinking her symptoms were caused from that. Patient states she was started on eliquis secondary to postoperative prevention of blood clots following stomach stapling surgery she had 9 days ago. No abdominal pain. No leg pain or leg swelling. Blood work completed in ED reveals WBC of 7.8, hemoglobin of 11.6 dropping down to 10.8 this morning, d-dimer is elevated at 5.73, sodium of 140, potassium 3.5, BUN/creatinine of 21/0.79, initial troponin upon arrival to ED was 0.0-4 and has trended up to 0.036, TSH normal at 1.2, free T4 of 2.49, free T3 is pending EKG shows atrial fibrillation with RVR with heart rate of [address] depression Chest x-ray is negative for any acute cardiopulmonary process -- In the ED patient was placed on IV Cardizem infusion which improved heart rate to 84 - Patient is being admitted for further evaluation and treatment -- Patient reports severe left shoulder pain; denies any injuries; x-rays of the shoulder is ordered and pending -- Patient is currently in normal sinus rhythm; remains on atenolol Objective - Vital Signs Vital signs: Vital Signs Temp 98.0 F 08/28/23 04:00 Pulse 68 08/28/23 04:00 Resp 16 08/28/23 04:00 BP 110/67 08/28/23 04:00 Pulse Ox 97 08/28/23 08:42 FiO2 Intake & Output 08/27/23 08/28/23 08/28/23 18:59 06:59 18:59 Intake Total 240 0 Balance 240 0 Weight 86.183 kg Intake: Oral 240 0 Other: Voiding Method Toilet # Voids 1 - Exam PHYSICAL EXAMINATION: GENERAL: The patient is alert and oriented x3, not in any acute distress. Well developed, well nourished. HEENT: Pupils are round and equally reacting to light. EOMI. No scleral icterus. No conjunctival pallor. Normocephalic, atraumatic. No pharyngeal erythema. No thyromegaly. CARDIOVASCULAR: S1 and S2 present. No murmurs, rubs, or gallops. PULMONARY: Chest is clear to auscultation, no wheezing or crackles. ABDOMEN: Soft, nontender, nondistended, normoactive bowel sounds. No palpable organomegaly. MUSCULOSKELETAL: No joint swelling or deformity. EXTREMITIES: No cyanosis, clubbing, or pedal edema. NEUROLOGICAL: Gross neurological examination did not reveal any focal deficits. SKIN: No rashes. - Labs CBC & Chem 7: 08/28/23 11:02 08/28/23 11:02 Labs: Abnormal Lab Results - Last 24 Hours (Table) 08/27/23 Range/Units 09:34 D-Dimer 5.73 H (<0.60) mg/L FEU Assessment and Plan Assessment: 1. New onset atrial fibrillation with RVR - Patient has been placed on IV Cardizem infusion; home dose of atenolol 50 mg twice a day since - We will monitor EKG and trend troponin - Consult cardiology for further recommendations 2. Elevated d-dimer/chest pain; we will order stat CT of the chest with PE protocol and bilateral lower extremity venous Doppler - Hold off on anticoagulation until results are available 3. Elevated troponin; possibly rate related; troponin on presentation to ED was within normal range at 0.0-4 with the third set increasing to 0.36 4. Anemia; hemoglobin down to 10.8 from 11.6 upon admission; no complaints of hemoptysis, hematemesis or any overt bleeding - We will monitor H&H closely; order stool occult blood; start patient on Protonix - Further recommendations pending test results 5. Elevated free T4; TSH remains within normal limits; free T3 is pending - Likely sick euthyroid versus hyperthyroidism - Consult endocrinology 6. Mild ESSIE; BUN slightly elevated at 24 with normal creatinine of 0.86 upon admission; BUN trending down to 21; increased oral fluid intake is recommended; we will monitor strict CORETTA's, daily weights, renal function and electrolytes - Avoid nephrotoxins and hypotension 7. Hypertension; continue with home dose of atenolol 50 mg twice a day DVT prophylaxis; SCDs/subcu heparin CODE STATUS; full code
[2023-08-29] MEDS: PANTOPRAZOLE 40 MG TABLET PO SCH (05:14)
[2023-08-29] MEDS: traMADol 50 MG TAB PO PRN ×2 (05:14→11:12)
[2023-08-29] MEDS: atenoloL 50 MG TAB PO SCH (08:01)
[2023-08-29] MEDS: HEPARIN SODIUM,PORCINE 5,000 UNIT/ML 1 ML VIAL SQ SCH ×2 (08:01→15:29)
[2023-08-29 08:08] VITALS: PULSE 85; RESP 20; TEMP 98.6
[2023-08-29 08:55] LABS: Basophils % (A) 0 %; Eosinophils # (A) 0.2 k/uL (0-0.7); Eosinophils % (A) 3 %; HCT 35.5 % (34.0-46.0); Lymphocytes # (A) 1.9 k/uL (1.0-4.8); Lymphocytes % (A) 21 %; MCH 31.2 pg (25.0-35.0); MCHC 33.7 g/dL (31.0-37.0); MCV 92.6 fL (80.0-100.0); Mean Platelet Volume 7.3; Monocytes # (A) 0.4 k/uL (0-1.0); Monocytes % (A) 4 %; Neutrophils # (A) 6.2 k/uL (1.3-7.7); Neutrophils % (A) 71 %; Platelet Count 373 k/uL (150-450); RBC 3.84 m/uL (3.80-5.40); WBC 8.8 k/uL (3.8-10.6)
[2023-08-29 09:10] LABS: African American GFR (CKD) >90 (>60 ml/min/1.73 sqM); Anion Gap 13 mmol/L; Blood Urea Nitrogen 13 mg/dL (7-17); Calcium 9.4 mg/dL (8.4-10.2); Carbon Dioxide 21 mmol/L (22-30); Chloride 104 mmol/L (98-107); Glucose 100 mg/dL (74-99); Non-African American GFR(CKD) 88 (>60 ml/min/1.73 sqM); Potassium 3.8 mmol/L (3.5-5.1); Sodium 138 mmol/L (137-145)
--- NOTE | 2023-08-29 10:21 | US ---
EXAMINATION TYPE: US venous doppler duplex UE LT DATE OF EXAM: 08/29/2023 Exam done portable COMPARISON: NONE CLINICAL INDICATION: Female, 57 years old with history of pain, r/o dvt; Left arm pain SIDE PERFORMED: Left There is normal color flow with compressibility of the left internal jugular vein, subclavian vein, a xillary vein, brachial vein, and basilic vein. There is noncompressibility with lack color flow and t hrombus identified within the left cephalic vein. There is compressibility identified of the left rad ial and ulnar veins. Left Arm: Appears negative for DVT Thrombus seen within superficial cephalic vein in upper arm IMPRESSION: 1. No deep venous thrombosis of the left upper extremity. 2. Superficial venous thrombosis of the left cephalic vein.
[2023-08-29] MEDS ORDERED: CYCLOBENZAPRINE 10 MG TAB PO PRN (11:25)
[2023-08-29] MEDS ORDERED: LIDOCAINE 5% PATCH TOPICAL SCH (11:30)
--- NOTE | 2023-08-29 11:37 | P.PN ---
Subjective HISTORY OF PRESENT ILLNESS: 08/28/23 The patient is a 57-year-old female who recently underwent bariatric surgery. She presented to the hospital initially with chest pain and was found to be in atrial fibrillation on arrival to the emergency department. She was started on a Cardizem drip, where she ultimately converted back to sinus mechanism. She continues to report left arm discomfort which will radiate down into her anterior chest wall. EKGs have shown sinus mechanism without ST or T-wave abnormalities. Troponins are negative. Echocardiogram reveals normal LV function with moderate LVH 08/29/2023 Patient examined this morning. She is sitting on the side of the bed. Patient denies chest pain or pressure. She denies shortness of breath. She is complaining of significant left arm and shoulder pain. She states this began after she had an IV that infiltrated. Telemetry reveals sinus mechanism. Echocardiogram completed revealing ejection fraction 55-60%. PHYSICAL EXAM: VITAL SIGNS: Reviewed. GENERAL: Well-developed in no acute distress. NECK: Supple. No JVD or thyromegaly LUNGS: Respirations even and unlabored. Lungs essentially clear to auscultation bilaterally. HEART: Regular rate and rhythm. S1 and S2 heard. EXTREMITIES: Normal range of motion. No clubbing or cyanosis. Peripheral pulses intact. No lower extremity edema ASSESSMENT: New-onset paroxysmal atrial for ablation with RVR, currently maintaining sinus mechanism Left arm pain, status post IV infiltration per patient History of hypertension History of prediabetes Recent bariatric surgery PLAN: Continue current cardiac medications Obtain Doppler of left upper extremity to rule out DVT Continue telemetry monitoring Further recommendations pending patient's course Nurse practitioner note has been reviewed by physician. Signing provider agrees with the documented findings, assessment, and plan of care. Objective - Vital Signs Vital signs: Vital Signs Temp 98.6 F 08/29/23 08:00 Pulse 85 08/29/23 08:00 Resp 20 08/29/23 08:00 BP 122/84 08/29/23 08:00 Pulse Ox 99 08/29/23 08:00 FiO2 Intake & Output 08/28/23 08/29/23 08/29/23 18:59 06:59 18:59 Intake Total 960 480 Balance 960 480 Intake: Oral 960 480 Other: Voiding Method Toilet Toilet Toilet # Voids 2 1 - Labs CBC & Chem 7: 08/29/23 08:33 10/02/23 08:33 Labs: Abnormal Lab Results - Last 24 Hours (Table) 08/28/23 08/28/23 08/29/23 Range/Units 11:02 11:02 08:33 RBC 3.78 L (3.80-5.40) m/uL Sodium 136 L (137-145) mmol/L Carbon Dioxide 21 L 21 L (22-30) mmol/L Glucose 100 H (74-99) mg/dL
[2023-08-29 11:44] VITALS: BP 132/89
--- NOTE | 2023-08-29 13:10 | P.CNOR ---
History of Present Illness - [facility] Consult date: 08/29/23 Consult reason: joint pain (Left shoulder pain) History of present illness: The patient is a 57-year-old female who presented to the emergency department with chest pain. She was found to be in A. fib and has been treated with cardiology and internal medicine while being in the hospital. She states she did have an IV go bad in her left antecubital area. She now has a painful lump in her left upper arm. Orthopedics is consulted for severe left shoulder pain. She states the pain started 2 days ago while in hospital. No acute injury proceeded the pain. She states she is having pain in the left shoulder radiating to her left side of her neck and jaw. She is unable to lift her left arm due to pain. Cardiology has ordered a CTA that was negative for PE. He left upper arm Doppler revealed a superficial thrombosis in the cephalic vein. X-ray of the left shoulder yesterday revealed some AC joint arthritis, no fracture or dislocation noted. The patient currently has a lidocaine patch on the shoulder. She was given a Flexeril a little bit ago but has not taken it yet. She also has been taking Ultram. The patient is status post stomach stapling surgery in late July. Review of Systems Constitutional: Denies chills, Denies fatigue, Denies fever Cardiovascular: Denies chest pain, Denies shortness of breath Gastrointestinal: Denies diarrhea, Denies nausea, Denies vomiting Musculoskeletal: left: shoulder pain, shoulder stiffness Past Medical History Past Medical History: Hypertension History of Any Multi-Drug Resistant Organisms: None Reported Past Surgical History: Bariatric Surgery Additional Past Surgical History / Comment(s): Gastric Bypass Past Anesthesia/Blood Transfusion Reactions: No Reported Reaction Past Psychological History: No Psychological Hx Reported Past Drug Use History: Marijuana Medications and Allergies Home Medications Medication Instructions Recorded Confirmed Type Omeprazole 20 mg PO BID 08/26/23 08/26/23 History Ondansetron [Zofran] 4 mg PO QID PRN 08/26/23 08/26/23 History Scopolamine [Scopolamine 1 MG/72 1 patch TRANSDERM Q72H PRN 08/26/23 08/26/23 History HR patch] atenoloL 50 mg PO BID 08/26/23 08/26/23 History atenoloL 50 mg PO DAILY PRN 08/26/23 08/26/23 History traMADol HCL 50 mg PO Q6H PRN 08/26/23 08/26/23 History Allergies Allergy/AdvReac Type Severity Reaction Status Date / Time Sulfa (Sulfonamide Allergy Difficulty Verified 08/26/23 15:09 Antibiotics) breathing codeine AdvReac Vomiting Verified 08/26/23 15:09 metoclopramide [From Reglan] AdvReac Rapid Verified 08/26/23 15:09 Heart Rate morphine AdvReac Rapid Verified 08/26/23 15:09 Heart Rate Physical Examination The patient is a 57-year-old female in no acute distress. She is alert and oriented 3. Exam of the left shoulder and arm reveal a lidocaine patch. There is a hard lump to the anterior arm just above the elbow. There is pain throughout the entire shoulder upon palpation and into the trapezius and sternocleidomastoid muscle. There is pain to any range of motion of the shoulder. Neurological and circulatory status is intact to the left upper arm. Results X-ray of the left shoulder reveals AC joint arthritis. No acute fracture or dislocation noted. - Labs Labs: Abnormal Lab Results - Last 24 Hours (Table) 08/29/23 Range/Units 08:33 Carbon Dioxide 21 L (22-30) mmol/L Glucose 100 H (74-99) mg/dL H & H 08/26/23 08/27/23 08/28/23 Range/Units 14:25 06:54 11:02 Hgb 11.6 10.8 L 11.4 (11.4-16.0) gm/dL Hct 34.3 32.7 L 34.7 (34.0-46.0) % 08/29/23 Range/Units 08:33 Hgb 12.0 (11.4-16.0) gm/dL Hct 35.5 (34.0-46.0) % Coagulation 08/26/23 Range/Units 14:25 INR 1.0 (<1.2) Result Diagrams: 08/29/23 08:33 08/29/23 08:33 Assessment and Plan (1) Left shoulder strain Current Visit: Yes Status: Acute Code(s): S46.912A - STRAIN UNSP MUSC/FASC/TEND AT SHLDR/UP ARM, LEFT ARM, INIT SNOMED Code(s): 549817289 (2) Muscle spasm of left shoulder area Current Visit: Yes Status: Acute Code(s): M62.838 - OTHER MUSCLE SPASM SNOMED Code(s): 167093330 Plan: The clinical and diagnostic findings were discussed with the patient and nursing staff. The case was discussed at length with Dr. Arminda Newman. The patient will continue lidocaine patch, Flexeril, and Ultram. I advised the patient to start using heat to the area to relax the muscles. An arm sling will be ordered for comfort. She was encouraged to move the shoulder to prevent stiffness. The patient will follow-up in our office if pain continues for possible steroids or cortisone shot. The patient may discharge home today from an orthopedic standpoint.
--- NOTE | 2023-08-29 14:12 | P.DS ---
Providers Date of admission: 08/26/23 16:49 Expected date of discharge: 08/29/23 Attending physician: Myra Mathis Consults: 08/26/23 16:48 Consult Physician Routine Consulting Provider: Hudson Carter Consult Reason/Comments: a fib Do you want consulting provider notified?: Yes 08/29/23 08:52 Consult Physician Urgent Consulting Provider: Arminda Newman Consult Reason/Comments: shoulder pain Do you want consulting provider notified?: Yes Primary care physician: Dwight Aguirre Hospital Course: Discharge diagnoses; New onset atrial fibrillation with RVR, currently in sinus rhythm Elevated d-dimer/chest pain; CTA chest negative for PE Ultrasound lower extremity negative for DVT Follow-up with cardiology Elevated troponin; possibly rate related; troponin on presentation to ED was within normal range at 0.0-4 with the third set increasing to 0.36 Anemia Monitor CBC Elevated free T4; TSH remains within normal limits; Outpatient follow-up with PCP Mild ESSIE; Resolved Hypertension; Hospital course; 57-year-old female, history of hypertension, presenting to the emergency department with concerns for chest discomfort. Onset of symptoms was a couple hours ago while doing dishes. Patient has rash or in her left upper chest. Patient has mild associated dyspnea. No nausea. No diaphoresis. Patient has had some exertional fatigue and dyspnea over the past couple of days. Patient stopped eliquis secondary to thinking her symptoms were caused from that. Patient states she was started on eliquis secondary to postoperative prevention of blood clots following stomach stapling surgery she had 9 days ago. No abdominal pain. No leg pain or leg swelling. Blood work completed in ED reveals WBC of 7.8, hemoglobin of 11.6 dropping down to 10.8 this morning, d-dimer is elevated at 5.73, sodium of 140, potassium 3.5, BUN/creatinine of 21/0.79, initial troponin upon arrival to ED was 0.0-4 and has trended up to 0.036, TSH normal at 1.2, free T4 of 2.49, free T3 is pending EKG shows atrial fibrillation with RVR with heart rate of [address] depression Chest x-ray is negative for any acute cardiopulmonary process -- In the ED patient was placed on IV Cardizem infusion which improved heart rate to 84 - Patient is being admitted for further evaluation and treatment -- Patient reports severe left shoulder pain; denies any injuries; x-rays of the shoulder is ordered and pending -- Patient is currently in normal sinus rhythm; remains on atenolol 08/29. Patient seen and examined. Hemoglobin this morning is 12, WBC 8.8, platelet count 373, sodium 138, potassium 3.8, BUN 13, creatinine 0.75 Orthopedic evaluation the patient recommended to continue lidocaine patch, Flexeril, and Ultram. ORTHOPEDIC advised the patient to start using heat to the area to relax the muscles. An arm sling will be ordered for comfort. Orthopedic cleared the patient for discharge PHYSICAL EXAMINATION: GENERAL: The patient is alert and oriented x3, not in any acute distress. Well developed, well nourished. HEENT: Pupils are round and equally reacting to light. EOMI. No scleral icterus. No conjunctival pallor. Normocephalic, atraumatic. No pharyngeal erythema. No thyromegaly. CARDIOVASCULAR: S1 and S2 present. No murmurs, rubs, or gallops. PULMONARY: Chest is clear to auscultation, no wheezing or crackles. ABDOMEN: Soft, nontender, nondistended, normoactive bowel sounds. No palpable organomegaly. MUSCULOSKELETAL: No joint swelling or deformity. left Arm sling seen EXTREMITIES: No cyanosis, clubbing, or pedal edema. NEUROLOGICAL: Gross neurological examination did not reveal any focal deficits. SKIN: No rashes. Dictation was produced using [employer] dictation software. please excuse any grammatical, word or spelling errors. Patient Condition at Discharge: Stable Plan - Discharge Summary New Discharge Prescriptions: New Cyclobenzaprine [Flexeril] 10 mg PO TID PRN 7 Days #21 tab PRN Reason: Muscle Spasm Lidocaine 5% Patch [Lidoderm 5% Patch] 1 patch TOPICAL DAILY 7 Days #7 patch atenoloL [Tenormin] 50 mg PO BID 30 Days #60 tab Continue Ondansetron [Zofran] 4 mg PO QID PRN PRN Reason: Nausea traMADol HCL 50 mg PO Q6H PRN PRN Reason: Pain Scopolamine [Scopolamine 1 MG/72 HR patch] 1 patch TRANSDERM Q72H PRN PRN Reason: Nausea Omeprazole 20 mg PO BID Discontinued atenoloL 50 mg PO DAILY PRN PRN Reason: high bp atenoloL 50 mg PO BID Discharge Medication List Omeprazole 20 mg PO BID 08/26/23 [History] Ondansetron [Zofran] 4 mg PO QID PRN 08/26/23 [History] Scopolamine [Scopolamine 1 MG/72 HR patch] 1 patch TRANSDERM Q72H PRN 08/26/23 [History] traMADol HCL 50 mg PO Q6H PRN 08/26/23 [History] Cyclobenzaprine [Flexeril] 10 mg PO TID PRN 7 Days #21 tab 08/29/23 [Rx] Lidocaine 5% Patch [Lidoderm 5% Patch] 1 patch TOPICAL DAILY 7 Days #7 patch 08/29/23 [Rx] atenoloL [Tenormin] 50 mg PO BID 30 Days #60 tab 08/29/23 [Rx] Follow up Appointment(s)/Referral(s): Arminda Newman DO [Doctor of Osteopathic Medicine] - 1 Week (if shoulder pain contin ues. ) Dwight Aguirre DO [Primary Care Provider] - 1-2 days Discharge Disposition: HOME SELF-CARE
[2023-08-29 15:47] VITALS: BMI 34.7
== END 2023-08-29 16:20 | disposition home or self-care (01) ==
LOC: EC 13:49 → 3SCARD 16:49
PROVIDERS: ADMIT Internal Medicine; ATTEND Internal Medicine
DX: I48.91 Unspecified atrial fibrillation (principal); R77.8 Other specified abnormalities of plasma proteins; S46.912A Strain of unspecified muscle, fascia and tendon at shoulder and upper arm level, left arm, initial encounter; X58.XXXA Exposure to other specified factors, initial encounter; M62.838 Other muscle spasm; M79.602 Pain in left arm; R07.89 Other chest pain; I10 Essential (primary) hypertension; R73.03 Prediabetes; D64.9 Anemia, unspecified; N17.9 Acute kidney failure, unspecified; R94.6 Abnormal results of thyroid function studies; Z98.84 Bariatric surgery status; Z79.899 Other long term (current) drug therapy; Z88.2 Allergy status to sulfonamides; Z88.5 Allergy status to narcotic agent
CPT/HCPCS: 96372 ×4; 96365; 96366 ×2; 96375; 99291; 36415; 94760; 93005; 93306; 85379; 84439; 84481; 83880; 80053 ×2; 80048 ×2; 83735; 84443; 84484 ×2; 85025 ×4; 85610; 85730; 73030; 71046; 93970; 93971; 71275; G0378 ×4; J1644 ×3; C9113; Q9967

== ENCOUNTER 2025-04-28 12:17 | Observation (INO) | payer OTHER ==
--- NOTE | 2025-04-28 12:37 | ED ---
General Adult HPI - General Chief complaint: Recheck/Abnormal Lab/Rx Stated complaint: Abn BP Time Seen by Provider: 04/28/25 12:22 Source: patient Mode of arrival: ambulatory Limitations: no limitations - History of Present Illness Initial comments: Dictation was produced using [employer] dictation software. please excuse any grammatical, word or spelling errors. Chief Complaint: 59-year-old female presents with chest pain hypertension History of Present Illness: Patient is a 59-year-old female presents emergency department with chest pain hypertension. Patient has a history of uncontrolled hypertension for the last several months. Takes multiple blood pressure medications. Over the last 1 2 days she has had some chest pressure substernal not associated with diaphoresis but does come along with nausea. Pain is nonradiating. Patient denies any history of cardiac history. Patient states that the pain is a pressure. Denies any sharp radiating to her back. The ROS documented in this emergency department record has been reviewed and con firmed by me. Those systems with pertinent positive or negative responses have been documented in the HPI. All other systems are other negative and/or noncontributory. - Related Data Home Medications Medication Instructions Recorded Confirmed Omeprazole 20 mg PO BID 08/26/23 08/26/23 Ondansetron [Zofran] 4 mg PO QID PRN 08/26/23 08/26/23 Scopolamine [Scopolamine 1 MG/72 1 patch TRANSDERM Q72H PRN 08/26/23 08/26/23 HR patch] traMADol HCL 50 mg PO Q6H PRN 08/26/23 08/26/23 Previous Rx's Medication Instructions Recorded Cyclobenzaprine [Flexeril] 10 mg PO TID PRN 7 Days #21 tab 08/29/23 Lidocaine 5% Patch [Lidoderm 5% 1 patch TOPICAL DAILY 7 Days #7 08/29/23 Patch] patch atenoloL [Tenormin] 50 mg PO BID 30 Days #60 tab 08/29/23 Allergies Allergy/AdvReac Type Severity Reaction Status Date / Time Sulfa (Sulfonamide Allergy Difficulty Verified 04/28/25 12:21 Antibiotics) breathing codeine AdvReac Vomiting Verified 04/28/25 12:21 metoclopramide [From Reglan] AdvReac Rapid Verified 04/28/25 12:21 Heart Rate morphine AdvReac Rapid Verified 04/28/25 12:21 Heart Rate Review of Systems ROS Statement: Those systems with pertinent positive or pertinent negative responses have been documented in the HPI. ROS Other: All systems not noted in ROS Statement are negative. Past Medical History Past Medical History: Hypertension History of Any Multi-Drug Resistant Organisms: None Reported Past Surgical History: Bariatric Surgery Additional Past Surgical History / Comment(s): Gastric Bypass Past Anesthesia/Blood Transfusion Reactions: No Reported Reaction Past Psychological History: No Psychological Hx Reported Past Drug Use History: Marijuana General Exam - General Exam Comments Initial Comments: PHYSICAL EXAM: General Impression: Alert and oriented x3, not in acute distress HEENT: Normocephalic atraumatic, extra-ocular movements intact, pupils equal and reactive to light bilaterally, mucous membranes moist. Cardiovascular: Heart regular rate and rhythm Chest: Able to complete full sentences, no retractions, no tachypnea Abdomen: abdomen soft, non-tender, non-distended, no organomegaly Musculoskeletal: Pulses present and equal in all extremities, no peripheral edema Motor: no focal deficits noted Neurological: CN II-XII grossly intact, no focal motor or sensory deficits noted Skin: Intact with no visualized rashes Psych: Normal affect and mood Limitations: no limitations Course Vital Signs 04/28/25 04/28/25 12:18 12:57 Temperature 98.8 F Pulse Rate 60 66 Respiratory 18 16 Rate Blood Pressure 166/102 158/106 O2 Sat by Pulse 100 98 Oximetry EKG Findings - EKG Comments: EKG Findings:: My EKG interpretation: Ventricular rate 61, sinus rhythm, AL interval 117, QRS 107, QTc 410. No AL prolongation, no QTC prolongation, no ST or T-wave changes noted. Overall, this EKG is unremarkable Medical Decision Making - Medical Decision Making Was pt. sent in by a medical professional or institution (, PA, [employer], urgent care, hospital, or [facility]...) When possible be specific @ -No Did you speak to anyone other than the patient for history (EMS, parent, family, police, friend...)? What history was obtained from this source @ -No Did you review nursing and triage notes (agree or disagree)? Why? @ -I reviewed and agree with nursing and triage notes Were old charts reviewed (outside hosp., previous admission, EMS record, old EKG, old radiological studies, urgent care reports/EKG's, [facility] records)? Report findings @ -No old charts were reviewed Differential Diagnosis (chest pain, altered mental status, abdominal pain women, abdominal pain men, vaginal bleeding, musculoskeletal, weakness, fever, dyspnea, syncope, headache, dizziness, GI bleed, back pain, seizure, CVA, palpatations, mental health)? @ -Differential Chest Pain: Stable Angina, Unstable Angina, STEMI, NSTEMI Aortic Dissection, Pneumothorax, Musculoskeletal, Esophageal Spasm GERD, Cholecystitis, Pancreatitis, Zoster, this is not meant to be an all-inclusive list. EKG interpreted by me (3pts min.). @ -See above X-rays interpreted by me (1pt min.). @ -Chest x-ray is nonacute CT interpreted by me (1pt min.). @ -None done U/S interpreted by me (1pt. min.). @ -None done What testing was considered but not performed or refused? (CT, X-rays, U/S, labs)? Why? @ -None What meds were considered but not given or refused? Why? @ -None Was smoking cessation discussed for >3mins.? @ -No Were there social determinants of health that impacted care today? How? (Homelessness, low income, unemployed, alcoholism, drug addiction, transportation, low edu. Level, literacy, decrease access to med. care, prison, rehab)? @ -No Was there de-escalation of care discussed even if they declined (Discuss DNR or withdrawal of care, Hospice)? DNR status @ -No What co-morbidities impacted this encounter? (DM, HTN, Smoking, COPD, CAD, Cancer, CVA, ARF, Chemo, Hep., AIDS, mental health diagnosis, sleep apnea, morbid obesity)? @ -None Was patient admitted / discharged? Hospital course, mention meds given and route, prescriptions, significant lab abnormalities, going to OR and other pertinent info. @ -59-year-old female with chest pain concerning for ACS. She also complains of hypertension. Vital signs upon arrival within acceptable limits. EKG shows no ischemia or infarction. Laboratory evaluation obtained. Cardiac workup is negative including troponins. Labs otherwise negative. Chest x-ray is nonacute. Patient has multiple coronary artery risk factors will be admitted observation with cardiology consultation. Patient given aspirin. Case discussed with hospitalist for admission Did you discuss the management of the patient with other professionals (professionals i.e. , PA, [employer], lab, RT, psych nurse, health and social care teacher, clinical services consultant, teacher, court registry officer, trimming caser)? Give summary @ -See above Was critical care preformed (if so, how long)? @ -No Undiagnosed new problem with uncertain prognosis? @ -No Drug Therapy requiring intensive monitoring for toxicity (Heparin, Nitro, Insulin, Cardizem)? @ -No Were any procedures done? @ -No Diagnosis/symptom? Acute, or Chronic, or Acute on Chronic? Uncomplicated (without systemic symptoms) or Complicated (systemic symptoms)? @ -Chest pain, hypertension Side effects of treatment? @ -No Exacerbation, Progression, or Severe Exacerbation? @ -No Poses a threat to life or bodily function? How? (Chest pain, [place], [place], pneumonia, PE, COPD, DKA, ARF, appy, cholecystitis, CVA, Diverticulitis, Homicidal, Suicid al, threat to staff... and all critical care pts) @ -yes - Lab Data Result diagrams: 04/28/25 12:52 04/28/25 12:52 Lab Results 04/28/25 04/28/25 04/28/25 Range/Units 12:52 12:52 12:52 WBC 6.59 (4.50-10.00) 10*3/uL RBC 4.47 (4.10-5.20) 10*6/uL Hgb 13.8 (12.0-15.0) g/dL Hct 40.5 (37.2-46.3) % MCV 90.6 (80.0-97.0) fL MCH 30.9 (27.0-32.0) pg MCHC 34.1 (32.0-37.0) g/dL Plt Count 258 (140-440) 10*3/uL MPV 9.1 L (9.5-12.2) fL Immature Gran % (Auto) 0.2 % Neutrophils % 57.3 % Lymphocytes % 31.1 % Monocytes % 7.0 % Eosinophils % 3.6 % Basophils % 0.8 % Immature Gran # 0.01 (0.00-0.04) 10*3/uL Neutrophils # 3.78 (1.80-7.70) 10*3/uL Lymphocytes # 2.05 (0.90-5.00) 10*3/uL Monocytes # 0.46 (0.20-1.00) 10*3/uL Eosinophils # 0.24 (0.04-0.35) 10*3/uL Basophils # 0.05 (0.00-0.10) 10*3/uL PT 11.4 (10.0-12.5) sec INR 1.0 (<1.2) APTT 24.2 (22.0-30.0) sec Sodium 141 (137-145) mmol/L Potassium 4.0 (3.5-5.1) mmol/L Chloride 104 (98-107) mmol/L Carbon Dioxide 27 (22-30) mmol/L Anion Gap 10 mmol/L BUN 22 H (7-17) mg/dL Creatinine 0.89 (0.52-1.04) mg/dL Est GFR (CKD-EPI)AfAm 81 (>60 ml/min/1.73 sqM) Est GFR (CKD-EPI)NonAf 70 (>60 ml/min/1.73 sqM) Glucose 95 (74-99) mg/dL Calcium 10.0 (8.4-10.2) mg/dL Magnesium 2.0 (1.6-2.3) mg/dL Total Bilirubin 0.6 (0.2-1.3) mg/dL AST 22 (14-36) U/L ALT 16 (4-34) U/L Alkaline Phosphatase 69 (38-126) U/L Troponin I (0.000-0.034) ng/mL Total Protein 7.3 (6.3-8.2) g/dL Albumin 4.3 (3.5-5.0) g/dL 04/28/25 Range/Units 12:52 WBC (4.50-10.00) 10*3/uL RBC (4.10-5.20) 10*6/uL Hgb (12.0-15.0) g/dL Hct (37.2-46.3) % MCV (80.0-97.0) fL MCH (27.0-32.0) pg MCHC (32.0-37.0) g/dL Plt Count (140-440) 10*3/uL MPV (9.5-12.2) fL Immature Gran % (Auto) % Neutrophils % % Lymphocytes % % Monocytes % % Eosinophils % % Basophils % % Immature Gran # (0.00-0.04) 10*3/uL Neutrophils # (1.80-7.70) 10*3/uL Lymphocytes # (0.90-5.00) 10*3/uL Monocytes # (0.20-1.00) 10*3/uL Eosinophils # (0.04-0.35) 10*3/uL Basophils # (0.00-0.10) 10*3/uL PT (10.0-12.5) sec INR (<1.2) APTT (22.0-30.0) sec Sodium (137-145) mmol/L Potassium (3.5-5.1) mmol/L Chloride (98-107) mmol/L Carbon Dioxide (22-30) mmol/L Anion Gap mmol/L BUN (7-17) mg/dL Creatinine (0.52-1.04) mg/dL Est GFR (CKD-EPI)AfAm (>60 ml/min/1.73 sqM) Est GFR (CKD-EPI)NonAf (>60 ml/min/1.73 sqM) Glucose (74-99) mg/dL Calcium (8.4-10.2) mg/dL Magnesium (1.6-2.3) mg/dL Total Bilirubin (0.2-1.3) mg/dL AST (14-36) U/L ALT (4-34) U/L Alkaline Phosphatase (38-126) U/L Troponin I <0.012 (0.000-0.034) ng/mL Total Protein (6.3-8.2) g/dL Albumin (3.5-5.0) g/dL Disposition Clinical Impression: Chest pain Disposition: ADMITTED IP TO THIS [facility] Condition: Fair Referrals: Dwight Aguirre DO [Primary Care Provider] - 1-2 days Decision Time: 13:41
[2025-04-28] MEDS: ASPIRIN 81 MG PO STA (12:52)
[2025-04-28 13:08] LABS: Basophils # (A) 0.05 10*3/uL (0.00-0.10); Basophils % (A) 0.8 %; Eosinophils # (A) 0.24 10*3/uL (0.04-0.35); Eosinophils % (A) 3.6 %; HCT 40.5 % (37.2-46.3); HGB 13.8 g/dL (12.0-15.0); Lymphocytes # (A) 2.05 10*3/uL (0.90-5.00); Lymphocytes % (A) 31.1 %; MCH 30.9 pg (27.0-32.0); MCHC 34.1 g/dL (32.0-37.0); MCV 90.6 fL (80.0-97.0); Mean Platelet Volume 9.1 fL (9.5-12.2); Monocytes # (A) 0.46 10*3/uL (0.20-1.00); Neutrophils # (A) 3.78 10*3/uL (1.80-7.70); Neutrophils % (A) 57.3 %; Platelet Count 258 10*3/uL (140-440); RBC 4.47 10*6/uL (4.10-5.20); RDW 11.8 % (11.5-14.5); WBC 6.59 10*3/uL (4.50-10.00)
[2025-04-28 13:16] LABS: Partial Thromboplastin Time 24.2 sec (22.0-30.0); Prothrombin Time 11.4 sec (10.0-12.5)
[2025-04-28 13:19] LABS: ALT 16 U/L (4-34); AST 22 U/L (14-36); African American GFR (CKD) 81 (>60 ml/min/1.73 sqM); Albumin 4.3 g/dL (3.5-5.0); Alkaline Phosphatase 69 U/L (38-126); Anion Gap 10 mmol/L; Blood Urea Nitrogen 22 mg/dL (7-17); Carbon Dioxide 27 mmol/L (22-30); Chloride 104 mmol/L (98-107); Glucose 95 mg/dL (74-99); Non-African American GFR(CKD) 70 (>60 ml/min/1.73 sqM); Sodium 141 mmol/L (137-145); Total Bilirubin 0.6 mg/dL (0.2-1.3); Total Protein 7.3 g/dL (6.3-8.2)
--- NOTE | 2025-04-28 13:21 | XR ---
EXAMINATION TYPE: XR chest 2V DATE OF EXAM: 04/28/2025 1:15 PM COMPARISON: Chest radiographs from 08/26/2023 TECHNIQUE: XR chest 2V Frontal and lateral views of the chest. CLINICAL INDICATION:Female, 59 years old with history of Chest Pain; FINDINGS: Lungs/Pleura: There is no evidence of pleural effusion, focal consolidation, or pneumothorax. Pulmonary vascularity: Unremarkable. Heart/mediastinum: Cardiomediastinal silhouette is unremarkable. Musculoskeletal: No acute osseous pathology. Other findings: Cholecystectomy clips identified in the right upper quadrant. IMPRESSION: No acute cardiopulmonary disease/process. [facility], , 04/28/2025 1:18 PM
[2025-04-28] MEDS ORDERED: NITROGLYCERIN SL TABS 0.4 MG TAB SUBLINGUAL PRN (13:38)
[2025-04-28] MEDS: atenoloL 50 MG TAB PO SCH (21:52)
[2025-04-28] MEDS: ACETAMINOPHEN TAB 325 MG TAB PO PRN (23:10)
[2025-04-29] MEDS: PANTOPRAZOLE 40 MG TABLET PO SCH (06:39)
[2025-04-29] MEDS: methocarbamoL 500 MG TAB PO PRN (06:40)
[2025-04-29 08:13] LABS: LDL Cholesterol,Calculated 115.9 mg/dL (0.0-131.0)
[2025-04-29] MEDS: hydrALAZINE HCL 50 MG TAB PO STA (08:56)
[2025-04-29] MEDS: ASPIRIN 81 MG PO SCH (08:56)
[2025-04-29] MEDS ORDERED: ASPIRIN 325 MG TAB PO SCH (09:00)
--- NOTE | 2025-04-29 10:07 | US ---
EXAMINATION TYPE: US renal artery duplex complete DATE OF EXAM: 04/29/2025 COMPARISON: NONE CLINICAL INDICATION: Female, 59 years old with history of htn, r/o stenosis; Uncontrolled HTN TECHNIQUE: Grayscale, color Doppler and spectral Doppler imaging of the bilateral renal arteries and kidneys. FINDINGS: MEASUREMENTS: RENAL SIZE: Right Kidney: 10.0 x5.1 x 4.6 Left Kidney: 10.2 x 5.3 x 4.4 Right Kidney: No evidence of hydro, Two, small hypoechoic lesions 1)- mid= 1.4 x 0.9 x 1.0 cm, 2)- l ateral lower pole= 1.8 x 1.2 x 1.6 cm Left Kidney: No evidence of hydro, nonobstructing calculus mid= 3mm in size Abd Aorta: wnl RESISTANCE INDEX Right: 0.6 Left: 0.7, normal less than 0.70. RA/AO RATIO (< 3.5 ) Right: 2.3 Left: 2.4 RENAL ARTERY VELOCITY ( < 180 cm/s) Right: 143 Left: 154 Fire Management Specialist Notes: Appropriate color Doppler flow and spectral waveforms to the kidneys bilaterally. Grayscale imaging of the kidneys and show no evidence for hydronephrosis or mass. No renal calculi or cysts visualized. IMPRESSION: No evidence for renal artery stenosis bilaterally. The resistive index on the left kidney however is at the upper limits for normal. [facility], , 04/29/2025 10:05 AM
--- NOTE | 2025-04-29 10:29 | P.CRDCN ---
History of Present Illness History of present illness: HISTORY OF PRESENT ILLNESS: This is a 59-year-old female with a past medical history significant for atrial fibrillation, hypertension, former nicotine dependence, and marijuana use. 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 She has been following at [facility] hypertension clinic for the past several years. We have been asked to see the patient in consultation for chest pain. Patient examined at the bedside. Patient presented to the hospital with a chief complaint of elevated blood pressures. She states at home her blood pressures have been greater than 150s systolic for the past week. She also reports having some mild chest tightness. Denies any shortness of breath. She gives history of having a gastric sleeve and states she was post to have EGD recently but it was canceled due to uncontrolled hypertension. She has been following at [facility] for several years for her blood pressure. She states that she has multiple adverse effects to many medications. She is currently taking atenolol 50 mg 3 times a day. She is a former cigarette smoker. She also reports using marijuana but states she has not used it recently due to her blood pressure readings. DIAGNOSTICS: - EKG reveals sinus mechanism with no signs of acute ischemia. - Chest xray negative for acute process. - Laboratory data: WBC 6.59. Hemoglobin 13.8. Platelet count 258. Sodium 141. Potassium 4.0. BUN 22. Creatinine 0.89. Magnesium 2.0. Troponin negative x 3. Cholesterol 183. LDL 115. - Current home cardiac medications include atenolol 50 mg 3 times daily. - Most recent echocardiogram obtained in July 2023 revealed ejection fraction 55 to 60%, LVH, mild tricuspid regurgitation - Cardiac catheterization history: Patient denies REVIEW OF SYSTEMS: At the time of my exam: CONSTITUTIONAL: Denies fever or chills. HEENT: Denies blurred vision, vision changes, or eye pain. Denies hemoptysis CARDIOVASCULAR: Denies chest pain. Denies orthopnea. Denies PND. Denies palpitations RESPIRATORY: Denies shortness of breath. GASTROINTESTINAL: Denies abdominal pain. Denies nausea or vomiting. HEMATOLOGIC: Denies bleeding disorders. GENITOURINARY: Denies any blood in urine. SKIN: Denies pruitis. Denies rash. PHYSICAL EXAM: VITAL SIGNS: Reviewed. GENERAL: Well-developed in no acute distress. HEENT: Head is normocephalic. Pupils are equal, round. Sclerae anicteric. Mucous membranes of the mouth are moist. Neck supple. No JVD or thyromegaly LUNGS: Respirations even and unlabored. Lungs essentially clear to auscultation bilaterally. HEART: Regular rate and rhythm. S1 and S2 heard. ABDOMEN: Soft. Nondistended. Nontender. EXTREMITIES: Normal range of motion. No clubbing or cyanosis. Peripheral pulses intact. No lower extremity edema NEUROLOGIC: Awake and alert. Oriented x 3. ASSESSMENT: Hypertension, uncontrolled, patient reports blood pressure 150 and greater at home for the past week Chest tightness, troponin negative x 3, ACS ruled out Paroxysmal atrial fibrillation History of hypertension Former nicotine dependence History of marijuana use Anxiety PLAN: An acute coronary event has been ruled out Obtain 2D echo to assess cardiac structure and function Discontinue atenolol Begin losartan 25 mg daily and amlodipine 5 mg daily Add aspirin 81 mg daily and atorvastatin 20 mg at night Patient to undergo stress echocardiogram this morning Give hydralazine 50 mg x 1 dose prior to stress testing Obtain renal artery Doppler to rule out renal artery stenosis Continue to monitor blood pressure Further recommendations pending patient course Nurse practitioner note has been reviewed by physician. Signing provider agrees with the documented findings, assessment, and plan of care documented by MANAGER OF RECRUITING as a scribe. Past Medical History Past Medical History: Atrial Fibrillation, Hypertension History of Any Multi-Drug Resistant Organisms: None Reported Past Surgical History: Bariatric Surgery, Section, Cholecystectomy, Tubal Ligation Additional Past Surgical History / Comment(s): Gastric sleeve, blepharoplasty x3. Past Anesthesia/Blood Transfusion Reactions: No Reported Reaction Past Psychological History: No Psychological Hx Reported Smoking Status: Current every day smoker Past Drug Use History: Marijuana Additional Drug Use History / Comment(s): occasional Medications and Allergies Home Medications Medication Instructions Recorded Confirmed Type Omeprazole 20 mg PO DAILY 08/26/23 04/28/25 History atenoloL [Tenormin] 50 mg PO TID 04/28/25 04/28/25 History methocarbamoL [Robaxin] 1,000 mg PO Q6H PRN 04/28/25 04/28/25 History Allergies Allergy/AdvReac Type Severity Reaction Status Date / Time Sulfa (Sulfonamide Allergy Difficulty Verified 04/28/25 13:45 Antibiotics) breathing codeine AdvReac Vomiting Verified 04/28/25 13:45 metoclopramide [From Reglan] AdvReac Rapid Verified 04/28/25 13:45 Heart Rate morphine AdvReac Rapid Verified 04/28/25 13:45 Heart Rate Physical Exam Vitals: Vital Signs Temp Pulse Pulse Resp BP BP Pulse Ox 04/29/25 07:00 97.8 F 59 L 15 160/84 99 04/29/25 00:56 98.0 F 56 L 17 150/91 99 04/28/25 20:00 16 04/28/25 19:14 97.9 F 54 L 17 148/91 99 04/28/25 16:35 161/95 04/28/25 14:51 98.6 F 59 L 18 178/115 98 04/28/25 13:53 66 20 147/88 99 04/28/25 12:57 66 16 158/106 98 04/28/25 12:18 98.8 F 60 18 166/102 100 Intake and Output 04/28/25 04/29/25 04/29/25 22:59 06:59 14:59 Other: Voiding Method Toilet # Voids 3 2 # Bowel Movements 0 Results 04/28/25 12:52 04/28/25 12:52 Cardiac Enzymes 04/28/25 04/28/25 04/28/25 Range/Units 12:52 12:52 15:54 AST 22 (14-36) U/L Troponin I <0.012 <0.012 (0.000-0.034) ng/mL 04/28/25 Range/Units 20:09 AST (14-36) U/L Troponin I <0.012 (0.000-0.034) ng/mL Coagulation 04/28/25 Range/Units 12:52 PT 11.4 (10.0-12.5) sec APTT 24.2 (22.0-30.0) sec CBC 04/28/25 Range/Units 12:52 WBC 6.59 (4.50-10.00) 10*3/uL RBC 4.47 (4.10-5.20) 10*6/uL Hgb 13.8 (12.0-15.0) g/dL Hct 40.5 (37.2-46.3) % Plt Count 258 (140-440) 10*3/uL Comprehensive Metabolic Panel 04/28/25 Range/Units 12:52 Sodium 141 (137-145) mmol/L Potassium 4.0 (3.5-5.1) mmol/L Chloride 104 (98-107) mmol/L Carbon Dioxide 27 (22-30) mmol/L BUN 22 H (7-17) mg/dL Creatinine 0.89 (0.52-1.04) mg/dL Glucose 95 (74-99) mg/dL Calcium 10.0 (8.4-10.2) mg/dL AST 22 (14-36) U/L ALT 16 (4-34) U/L Alkaline Phosphatase 69 (38-126) U/L Total Protein 7.3 (6.3-8.2) g/dL Albumin 4.3 (3.5-5.0) g/dL Current Medications Generic Name Dose Route Start Last Admin Trade Name Freq PRN Reason Stop Dose Admin Acetaminophen 650 mg 04/28/25 22:53 04/28/25 23:10 Acetaminophen Tab 325 Mg Tab PO 650 mg Q6HR PRN Administration Mild Pain or Fever > 100.5 Aspirin 325 mg 04/29/25 09:00 Aspirin 325 Mg Tab PO DAILY STEPHANIE Atenolol 50 mg 04/28/25 22:00 04/28/25 21:52 Atenolol 50 Mg Tab PO 50 mg TID STEPHANIE Administration Methocarbamol 1,000 mg 04/28/25 21:27 04/29/25 06:40 Methocarbamol 500 Mg Tab PO 1,000 mg Q6H PRN Administration Muscle Pain Nitroglycerin 0.4 mg 04/28/25 13:38 Nitroglycerin Sl Tabs 0.4 Mg Tab SUBLINGUAL Q5M PRN Chest Pain Pantoprazole Sodium 40 mg 04/29/25 07:30 04/29/25 06:39 Pantoprazole 40 Mg Tablet PO 40 mg [id number] STEPHANIE Administration Intake and Output 04/28/25 04/29/25 04/29/25 22:59 06:59 14:59 Other: Voiding Method Toilet # Voids 3 2 # Bowel Movements 0 04/28/25 12:52 04/28/25 12:52
[2025-04-29] MEDS: LOSARTAN 25 MG TAB PO SCH (11:53)
[2025-04-29] MEDS: amLODIPine 5 MG TAB PO SCH (11:53)
--- NOTE | 2025-04-29 12:41 | P.HPIM ---
History of Present Illness H&P Date: 04/29/25 History of present illness; patient 59-year-old lady with past medical history significant for atrial fibrillation, hypertension, who came to the hospital because of elevated blood pressure and chest pressure. Patient states that she normally followed [facility] and has been noticing that her blood pressure been high for the last 1 week, her blood pressure readings at home have been systolic greater than 150. She has been complaining of chest pressure that is central in location, nonradiating, no aggravating or relieving factor associated with this chest pressure. There was no complaint of orthopnea or PND. There was no complaint of shortness of breath at that time. There was no episode of diaphoresis during this episode of chest pressure. Patient denies any palpitation. There is no complaint of orthopnea or PND. Denies any nausea, vomiting abdominal pain. Patient denies any complaint of dizziness. There is no complaint of headache. Initial lab work done in the ER showed WBC 0.59, hemoglobin 13.8, platelet count 258, sodium 141, potassium 4, BUN 22, creatinine 0.89, glucose 95, calcium 10, troponin 0.012 EKG done in the ER showed heart rate of 61, no ST segment elevation or depression seen, no T-wave inversions seen. Chest x-ray done in the ER no acute cardiopulmonary Patient admitted to internal medicine service REVIEW OF SYSTEMS: CONSTITUTIONAL: No fever, no malaise, no fatigue. HEENT: No recent visual problems or hearing problems. Denied any sore throat. CARDIOVASCULAR: As mentioned above PULMONARY: As mentioned above GASTROINTESTINAL: No diarrhea, no nausea, no vomiting, no abdominal pain. NEUROLOGICAL: No headaches, no weakness, no numbness. HEMATOLOGICAL: Denies any bleeding or petechiae. GENITOURINARY: Denies any burning micturition, frequency, or urgency. MUSCULOSKELETAL/RHEUMATOLOGICAL: Denies any joint pain, swelling, or any muscle pain. ENDOCRINE: Denies any polyuria or polydipsia. The rest of the 14-point review of systems is negative. PHYSICAL EXAMINATION: GENERAL: The patient is alert and oriented x3, not in any acute distress. Well developed, well nourished. HEENT: Pupils are round and equally reacting to light. EOMI. No scleral icterus. No conjunctival pallor. Normocephalic, atraumatic. No pharyngeal erythema. No thyromegaly. CARDIOVASCULAR: S1 and S2 present. No murmurs, rubs, or gallops. PULMONARY: Chest is clear to auscultation, no wheezing or crackles. ABDOMEN: Soft, nontender, nondistended, normoactive bowel sounds. No palpable organomegaly. MUSCULOSKELETAL: No joint swelling or deformity. EXTREMITIES: No cyanosis, clubbing, or pedal edema. NEUROLOGICAL: Gross neurological examination did not reveal any focal deficits. SKIN: No rashes. Assessment and plan Chest pain Uncontrolled hypertension Paroxysmal atrial fibrillation History of hypertension Former nicotine dependence History of marijuana use Anxiety Monitor vital signs Monitor CBC Monitor CMP Continue telemetry monitoring Troponins trend Ordered 2D echo Ordered renal artery ultrasound Start aspirin, Lipitor Start losartan Consult cardiology Labs and medication were reviewed.. Continue same treatment. Continue with sym ptomatic treatment. Resume home medication. Monitor labs and vitals. DVT and GI prophylaxis. Further recommendations as per clinical course of the patient Dictation was produced using [employer] dictation software. please excuse any grammatical, word or spelling errors. Past Medical History Past Medical History: Atrial Fibrillation, Hypertension History of Any Multi-Drug Resistant Organisms: None Reported Past Surgical History: Bariatric Surgery, Section, Cholecystectomy, Tubal Ligation Additional Past Surgical History / Comment(s): Gastric sleeve, blepharoplasty x3. Past Anesthesia/Blood Transfusion Reactions: No Reported Reaction Past Psychological History: No Psychological Hx Reported Smoking Status: Current every day smoker Past Drug Use History: Marijuana Additional Drug Use History / Comment(s): occasional Medications and Allergies Home Medications Medication Instructions Recorded Confirmed Type Omeprazole 20 mg PO DAILY 08/26/23 04/28/25 History atenoloL [Tenormin] 50 mg PO TID 04/28/25 04/28/25 History methocarbamoL [Robaxin] 1,000 mg PO Q6H PRN 04/28/25 04/28/25 History Allergies Allergy/AdvReac Type Severity Reaction Status Date / Time Sulfa (Sulfonamide Allergy Difficulty Verified 04/28/25 13:45 Antibiotics) breathing codeine AdvReac Vomiting Verified 04/28/25 13:45 metoclopramide [From Reglan] AdvReac Rapid Verified 04/28/25 13:45 Heart Rate morphine AdvReac Rapid Verified 04/28/25 13:45 Heart Rate Physical Exam Vitals: Vital Signs Temp Pulse Pulse Resp BP BP Pulse Ox 04/29/25 08:00 16 04/29/25 07:00 97.8 F 59 L 15 160/84 99 04/29/25 00:56 98.0 F 56 L 17 150/91 99 04/28/25 20:00 16 04/28/25 19:14 97.9 F 54 L 17 148/91 99 04/28/25 16:35 161/95 04/28/25 14:51 98.6 F 59 L 18 178/115 98 04/28/25 13:53 66 20 147/88 99 04/28/25 12:57 66 16 158/106 98 04/28/25 12:18 98.8 F 60 18 166/102 100 Intake and Output 04/28/25 04/29/25 04/29/25 22:59 06:59 14:59 Other: Voiding Method Toilet Toilet # Voids 3 2 # Bowel Movements 0 Results CBC & Chem 7: 04/28/25 12:52 04/28/25 12:52 Labs: Abnormal Lab Results - Last 24 Hours (Table) 04/28/25 04/28/25 Range/Units 12:52 12:52 MPV 9.1 L (9.5-12.2) fL BUN 22 H (7-17) mg/dL Thrombosis Risk Factor Assmnt - Choose All That Apply Any of the Below Risk Factors Present?: No Each Factor Represents 1 point: Obesity (BMI >25) Other Risk Factors: Yes Each Risk Factor Represents 2 Points: Age 61-74 years Other congenital or acquired thrombophilia - If yes, enter type in comment: No Thrombosis Risk Factor Assessment Total Risk Factor Score: 3 Thrombosis Risk Factor Assessment Level: Moderate Risk
[2025-04-29] MEDS: ONDANSETRON 4 MG/2 ML VIAL IVP PRN (13:30)
--- NOTE | 2025-04-29 16:41 | CA ---
Transthoracic Echo Report Name: Jacqueline Carvajal Age: 59 Gender: F : 1965 Exam Date: 04/29/2025 12:35 Exam Location: [facility] Ht (in): 62 Wt (lb): 162 Ordering Physician: Carlotta Sanchez Attending/Referring Phys: [id number], Daniel Public Health Assistant Olamide Maria RDCS Procedure CPT: Indications: Hypertension, Cardiomyopathy, unspecified Cardiac Hx: Technical Quality: Fair Contrast 1: Total Dose (mL): Contrast 2: Total Dose (mL): MEASUREMENTS (Male / Female) Normal Values 2D ECHO LV Diastolic Diameter PLAX 4.6 cm 4.2 - 5.9 / 3.9 - 5.3 cm LV Systolic Diameter PLAX 2.5 cm IVS Diastolic Thickness 1.1 cm 0.6 - 1.0 / 0.6 - 0.9 cm LVPW Diastolic Thickness 1.2 cm 0.6 - 1.0 / 0.6 - 0.9 cm LV Relative Wall Thickness 0.5 RV Internal Dim ED PLAX 1.8 cm LA Systolic Diameter LX 3.4 cm 3.0 - 4.0 / 2.7 - 3.8 cm LV Diastolic Volume MOD BP 55.9 cm??? 67 - 155 / 56 - 104 cm??? LV Systolic Volume MOD BP 19.5 cm??? 22 - 58 / 19 - 49 cm??? LV Ejection Fraction MOD BP 65.0 % >= 55 % LV Cardiac Index MOD BP 1218.2 cm???/min???m??? LV Diastolic Volume MOD 4C 72.0 cm??? LV Systolic Volume MOD 4C 23.0 cm??? LV Ejection Fraction MOD 4C 68.0 % LV Cardiac Index MOD 4C 1641.6 cm???/min???m??? LV Diastolic Length 4C 6.7 cm LV Systolic Length 4C 5.4 cm LV Diastolic Volume MOD 2C 41.1 cm??? LV Systolic Volume MOD 2C 16.2 cm??? LV Ejection Fraction MOD 2C 60.5 % LV Cardiac Index MOD 2C 835.4 cm???/min???m??? LV Diastolic Length 2C 6.3 cm LV Systolic Length 2C 5.2 cm LA Volume 58.7 cm??? 18 - 58 / 22 - 52 cm??? LA Volume Index 32.3 cm???/m??? 16 - 28 cm???/m??? M-MODE Aortic Root Diameter MM 3.0 cm LA Systolic Diameter MM 2.8 cm LA Ao Ratio MM 0.9 AV Cusp Separation MM 1.8 cm DOPPLER AI Peak Velocity 273.7 cm/s AI Peak Gradient 30.0 mmHg AI Pressure Half Time 1317.5 ms MV Area PHT 2.5 cm??? Mitral E Point Velocity 77.2 cm/s Mitral A Point Velocity 123.0 cm/s Mitral E to A Ratio 0.6 MV Deceleration Time 302.0 ms TR Peak Velocity 202.6 cm/s TR Peak Gradient 16.4 mmHg Right Ventricular Systolic Press 26.4 mmHg FINDINGS Left Ventricle Left ventricular ejection fraction is estimated at 55-60%. Mildly increased septal wall thickness. Mildly increased posterior wall thickness. Normal left ventricular systolic function with no obvious regional wall motion abnormalities. Left ventricular cavity size normal. Mild concentric left ventricular hypertrophy. Right Ventricle Normal right ventricular size and function. Right ventricular systolic pressure within normal limits. Right Atrium Normal right atrial size. Left Atrium Mildly increased left atrial volume. Mitral Valve Structurally normal mitral valve. Trace mitral regurgitation. No mitral stenosis. Aortic Valve Trileaflet aortic valve. Trace aortic regurgitation. No aortic stenosis. Tricuspid Valve Structurally normal tricuspid valve. Trace tricuspid regurgitation. No tricuspid stenosis. Pulmonic Valve Structurally normal pulmonic valve. No pulmonic stenosis. Mild pulmonic regurgitation. Pericardium No pericardial or pleural effusion. Aorta Normal size aortic root and proximal ascending aorta. CONCLUSIONS LVEF 55% Mild concentric LVH No obvious regional wall motion abnormality Normal RV size and systolic function. RVSP estimated at 27 mmHg No significant valvular dysfunction Previewed by: Dr Gustavo Smith (Electronically Signed) Final Date: 29 April 2025 16:40
[2025-04-29] MEDS: ATORVASTATIN 20 MG TAB PO SCH (21:42)
[2025-04-29] MEDS: SODIUM CHLORIDE 0.9% 1,000 ML IV SCH (21:42)
[2025-04-30] MEDS: ALPRAZolam 0.25 MG TAB PO PRN (02:53)
[2025-04-30 07:52] VITALS: BP 158/90; PULSE 73; TEMP 98.3
[2025-04-30] MEDS ORDERED: carvediloL 6.25 MG TAB PO SCH (09:15)
[2025-04-30 10:56] VITALS: RESP 15
--- NOTE | 2025-04-30 13:22 | P.DS ---
Providers Date of admission: 04/28/25 13:38 Expected date of discharge: 04/30/25 Attending physician: Vale Werner Consults: 04/28/25 13:38 Consult Physician Urgent Consulting Provider: Hudson Carter Consult Reason/Comments: chest pain Do you want consulting provider notified?: Yes 04/29/25 16:38 Consult Physician Urgent Consulting Provider: Rudi Cabrera Consult Reason/Comments: anxiety Do you want consulting provider notified?: Yes Primary care physician: Dwight Aguirre Hospital Course: Discharge diagnoses; Hypertension, uncontrolled, patient reports blood pressure 150 and greater at home for the past week Chest tightness, troponin negative x 3, ACS ruled out Paroxysmal atrial fibrillation History of hypertension Former nicotine dependence History of marijuana use Anxiety Hospital course; patient 59-year-old lady with past medical history significant for atrial fibrillation, hypertension, who came to the hospital because of elevated blood pressure and chest pressure. Patient states that she normally followed [facility] and has been noticing that her blood pressure been high for the last 1 week, her blood pressure readings at home have been systolic greater than 150. She has been complaining of chest pressure that is central in location, nonradiating, no aggravating or relieving factor associated with this chest pressure. There was no complaint of orthopnea or PND. There was no complaint of shortness of breath at that time. There was no episode of diaphoresis during this episode of chest pressure. Patient denies any palpitation. There is no complaint of orthopnea or PND. Denies any nausea, vomiting abdominal pain. Patient denies any complaint of dizziness. There is no complaint of headache. Initial lab work done in the ER showed WBC 0.59, hemoglobin 13.8, platelet count 258, sodium 141, potassium 4, BUN 22, creatinine 0.89, glucose 95, calcium 10, troponin 0.012 EKG done in the ER showed heart rate of 61, no ST segment elevation or depression seen, no T-wave inversions seen. Chest x-ray done in the ER no acute cardiopulmonary Patient admitted to internal medicine service 04/30. Cardiology evaluated, ordered stress test, patient this time is not willing to undergo stress test, cardiology recommend outpatient follow-up. They stopped atenolol and started the patient on losartan, Norvasc. Outpatient follow-up with cardiology PHYSICAL EXAMINATION: GENERAL: The patient is alert and oriented x3, not in any acute distress. Well developed, well nourished. HEENT: Pupils are round and equally reacting to light. EOMI. No scleral icterus. No conjunctival pallor. Normocephalic, atraumatic. No pharyngeal erythema. No thyromegaly. CARDIOVASCULAR: S1 and S2 present. No murmurs, rubs, or gallops. PULMONARY: Chest is clear to auscultation, no wheezing or crackles. ABDOMEN: Soft, nontender, nondistended, normoactive bowel sounds. No palpable organomegaly. MUSCULOSKELETAL: No joint swelling or deformity. EXTREMITIES: No cyanosis, clubbing, or pedal edema. NEUROLOGICAL: Gross neurological examination did not reveal any focal deficits. SKIN: No rashes. Dictation was produced using [employer] dictation software. please excuse any grammatical, word or spelling errors. Patient Condition at Discharge: Fair Plan - Discharge Summary Discharge Rx Participant: No New Discharge Prescriptions: New Losartan [Cozaar] 25 mg PO DAILY #30 tab amLODIPine [Norvasc] 5 mg PO DAILY 30 Days #30 tab Aspirin 81 mg PO DAILY #30 tab Atorvastatin [Lipitor] 20 mg PO HS 30 Days #30 tab Continue Omeprazole 20 mg PO DAILY methocarbamoL [Robaxin] 1,000 mg PO Q6H PRN PRN Reason: Muscle Pain Discontinued atenoloL [Tenormin] 50 mg PO TID Discharge Medication List Omeprazole 20 mg PO DAILY 08/26/23 [History] methocarbamoL [Robaxin] 1,000 mg PO Q6H PRN 04/28/25 [History] Aspirin 81 mg PO DAILY #30 tab 04/30/25 [Rx] Atorvastatin [Lipitor] 20 mg PO HS 30 Days #30 tab 04/30/25 [Rx] Losartan [Cozaar] 25 mg PO DAILY #30 tab 04/30/25 [Rx] amLODIPine [Norvasc] 5 mg PO DAILY 30 Days #30 tab 04/30/25 [Rx] Follow up Appointment(s)/Referral(s): Gustavo Smith MD [Medical Doctor] - 1 Week Dwight Aguirre DO [Primary Care Provider] - 1-2 days Discharge Disposition: HOME SELF-CARE
--- NOTE | 2025-04-30 13:39 | P.PN ---
Subjective HISTORY OF PRESENT ILLNESS: This is a 59-year-old female with a past medical history significant for atrial fibrillation, hypertension, former nicotine dependence, and marijuana use. Patient does not follow with a civil engineering project designer locally. She has been following at [facility] hypertension clinic for the past several years. We have been asked to see the patient in consultation for chest pain. Patient examined at the bedside. Patient presented to the hospital with a chief complaint of elevated blood pressures. She states at home her blood pressures have been greater than 150s systolic for the past week. She also reports having some mild chest tightness. Denies any shortness of breath. She gives history of having a gastric sleeve and states she was post to have EGD recently but it was canceled due to uncontrolled hypertension. She has been following at [facility] for several years for her blood pressure. She states that she has multiple adverse effects to many medications. She is currently taking atenolol 50 mg 3 times a day. She is a former cigarette smoker. She also reports using marijuana but states she has not used it recently due to her blood pressure readings. DIAGNOSTICS: - EKG reveals sinus mechanism with no signs of acute ischemia. - Chest xray negative for acute process. - Laboratory data: WBC 6.59. Hemoglobin 13.8. Platelet count 258. Sodium 141. Potassium 4.0. BUN 22. Creatinine 0.89. Magnesium 2.0. Troponin negative x 3. Cholesterol 183. LDL 115. - Current home cardiac medications include atenolol 50 mg 3 times daily. - Most recent echocardiogram obtained in July 2023 revealed ejection fraction 55 to 60%, LVH, mild tricuspid regurgitation - Cardiac catheterization history: Patient denies 04/30/2025 Patient examined this morning at bedside. Patient currently denies chest pain or shortness of breath. Patient states that she had adverse reactions from the one-time dose of hydralazine yesterday and was having " vibrating of her entire body". Echocardiogram completed revealing ejection fraction 55%, mild concentric LVH, no obvious regional wall motion abnormalities. Renal artery Doppler negative for renal artery stenosis. PHYSICAL EXAM: VITAL SIGNS: Reviewed. GENERAL: Well-developed in no acute distress. HEENT: Head is normocephalic. Pupils are equal, round. Sclerae anicteric. Mucous membranes of the mouth are moist. Neck supple. No JVD or thyromegaly LUNGS: Respirations even and unlabored. Lungs essentially clear to auscultation bilaterally. HEART: Regular rate and rhythm. S1 and S2 heard. ABDOMEN: Soft. Nondistended. Nontender. EXTREMITIES: Normal range of motion. No clubbing or cyanosis. Peripheral pulses intact. No lower extremity edema NEUROLOGIC: Awake and alert. Oriented x 3. ASSESSMENT: Hypertension, uncontrolled, patient reports blood pressure 150 and greater at home for the past week Chest tightness, troponin negative x 3, ACS ruled out Paroxysmal atrial fibrillation History of hypertension Former nicotine dependence History of marijuana use Anxiety PLAN: Patient refusing stress test Continue amlodipine, losartan, Lipitor, and aspirin Patient is stable for discharge home today from a cardiac standpoint Patient to follow-up postdischarge with Dr. Smith Nurse practitioner note has been reviewed by physician. Signing provider agrees with the documented findings, assessment, and plan of care documented by PUBLIC AFFAIRS SPECIALIST as a scribe. Objective - Vital Signs Vital signs: Vital Signs Temp 98.3 F 04/30/25 07:14 Pulse 73 04/30/25 07:14 Resp 15 04/30/25 08:00 BP 158/90 04/30/25 07:14 Pulse Ox 99 04/30/25 07:14 FiO2 21 04/29/25 14:20 Intake & Output 04/29/25 04/30/25 04/30/25 18:59 06:59 18:59 Other: Voiding Method Toilet Toilet Toilet # Voids 3 1 - Labs CBC & Chem 7: 04/28/25 12:52 04/28/25 12:52 Labs: Abnormal Lab Results - Last 24 Hours (Table) 04/29/25 Range/Units 11:10 Cortisol 24.8 H (3.1-22.4) UG/DL
== END 2025-04-30 11:56 | disposition home or self-care (01) ==
LOC: EC 12:17 → 6NMEDSUR 13:38
PROVIDERS: ADMIT Hospitalist; ATTEND Hospitalist
DX: R07.89 Other chest pain (principal); I10 Essential (primary) hypertension; I48.0 Paroxysmal atrial fibrillation; I07.1 Rheumatic tricuspid insufficiency; F12.90 Cannabis use, unspecified, uncomplicated; F41.9 Anxiety disorder, unspecified; E66.9 Obesity, unspecified; Z68.29 Body mass index [BMI] 29.0-29.9, adult; Z79.899 Other long term (current) drug therapy; Z88.5 Allergy status to narcotic agent; Z88.2 Allergy status to sulfonamides; Z88.8 Allergy status to other drugs, medicaments and biological substances; Z87.891 Personal history of nicotine dependence; Z98.84 Bariatric surgery status
CPT/HCPCS: 96374; 99284; 36415; 94760; 93005 ×2; 93306; 85379; 83880; 80061; 80053; 82533; 82088; 84244; 83735; 84484; 85025; 85610; 85730; 83036; 71046; 93975; G0378 ×3; J2405

== ENCOUNTER 2025-05-01 05:42 | Emergency (ER) | payer OTHER ==
--- NOTE | 2025-05-01 06:20 | ED ---
General Adult HPI - General Chief complaint: Arrhythmia/Palpitations Stated complaint: Hypertension, heart palpatations Time Seen by Provider: 05/01/25 06:02 Source: patient Mode of arrival: ambulatory Limitations: no limitations - History of Present Illness Initial comments: This patient is a 59-year-old woman who was released from hospital yesterday a fter being admitted to have evaluation for hypertension. She states that she went home yesterday and her blood pressure has increased since that time. She is currently not taking any antihypertensives. Prior to going into the hospital days ago she was on atenolol 50 mg 3 times per day. She states that she was seen by cardiology, Dr. Smith, who wanted to change her antihypertensive regime. The patient is afraid that she will have reactions to the medications that he chose and has not had a chance to fill any prescriptions and has not taken any medications yet. -: hour(s) Severity scale (1-10): 0 Consistency: constant Improves with: none Worsens with: none Associated Symptoms: other (anxiety) - Related Data Home Medications Medication Instructions Recorded Confirmed Omeprazole 20 mg PO DAILY 08/26/23 04/28/25 methocarbamoL [Robaxin] 1,000 mg PO Q6H PRN 04/28/25 04/28/25 Previous Rx's Medication Instructions Recorded Aspirin 81 mg PO DAILY #30 tab 04/30/25 Atorvastatin [Lipitor] 20 mg PO HS 30 Days #30 tab 04/30/25 Losartan [Cozaar] 25 mg PO DAILY #30 tab 04/30/25 amLODIPine [Norvasc] 5 mg PO DAILY 30 Days #30 tab 04/30/25 lisinopriL 2.5 mg PO DAILY #30 tablet 05/01/25 Allergies Allergy/AdvReac Type Severity Reaction Status Date / Time amlodipine Allergy Rapid Verified 05/01/25 05:50 Heart Rate chlorthalidone Allergy Rapid Verified 05/01/25 05:50 Heart Rate doxazosin Allergy Rapid Verified 05/01/25 05:50 Heart Rate eplerenone Allergy Nausea & Verified 05/01/25 05:50 Vomiting guanfacine Allergy Unknown Verified 05/01/25 05:50 hydrochlorothiazide Allergy Rapid Verified 05/01/25 05:50 Heart Rate lisinopril Allergy Unknown Verified 05/01/25 05:50 losartan Allergy Rapid Verified 05/01/25 05:50 Heart Rate nebivolol [From Bystolic] Allergy Rapid Verified 05/01/25 05:50 Heart Rate Sulfa (Sulfonamide Allergy Difficulty Verified 05/01/25 05:50 Antibiotics) breathing codeine AdvReac Vomiting Verified 05/01/25 05:50 metoclopramide [From Reglan] AdvReac Rapid Verified 05/01/25 05:50 Heart Rate morphine AdvReac Rapid Verified 05/01/25 05:50 Heart Rate analogues Allergy Rapid Uncoded 05/01/25 05:50 Heart Rate Review of Systems ROS Statement: Those systems with pertinent positive or pertinent negative responses have been documented in the HPI. ROS Other: All systems not noted in ROS Statement are negative. Constitutional: Denies: fever, chills Respiratory: Denies: cough, dyspnea Cardiovascular: Denies: chest pain, palpitations, edema, syncope Gastrointestinal: Denies: abdominal pain, nausea, vomiting Genitourinary: Denies: dysuria Musculoskeletal: Denies: back pain Skin: Denies: rash Neurological: Denies: headache, weakness Psychiatric: Reports: anxiety Past Medical History Past Medical History: Atrial Fibrillation, Hypertension History of Any Multi-Drug Resistant Organisms: None Reported Past Surgical History: Bariatric Surgery, Section, Cholecystectomy, Tubal Ligation Additional Past Surgical History / Comment(s): Gastric sleeve, blepharoplasty x3. Past Anesthesia/Blood Transfusion Reactions: No Reported Reaction Past Psychological History: No Psychological Hx Reported Smoking Status: Current every day smoker Past Alcohol Use History: None Reported Past Drug Use History: Marijuana General Exam Limitations: no limitations General appearance: alert, anxious Head exam: Present: atraumatic, normocephalic Eye exam: Present: normal appearance. Absent: scleral icterus, conjunctival injection ENT exam: Present: normal oropharynx Neck exam: Present: normal inspection Respiratory exam: Present: normal lung sounds bilaterally. Absent: respiratory distress, wheezes, rales, rhonchi, stridor, accessory muscle use Cardiovascular Exam: Present: regular rate, normal rhythm, normal heart sounds. Absent: systolic murmur, diastolic murmur, rubs, gallop GI/Abdominal exam: Present: soft. Absent: distended, tenderness, guarding, rebound, rigid, mass Extremities exam: Present: normal inspection, normal capillary refill. Absent: pedal edema, calf tenderness Back exam: Present: normal inspection Neurological exam: Present: alert Psychiatric exam: Present: anxious Skin exam: Present: warm, dry, intact, normal color. Absent: rash Course Vital Signs 05/01/25 05/01/25 05/01/25 05:43 06:28 06:33 Temperature 98.4 F Pulse Rate 76 71 82 Respiratory 18 18 18 Rate Blood Pressure 148/100 151/108 140/87 O2 Sat by Pulse 99 98 Oximetry 05/01/25 05/01/25 05/01/25 06:50 07:17 08:00 Temperature 98.3 F Pulse Rate 81 75 76 Respiratory 16 14 14 Rate Blood Pressure 142/91 161/95 135/90 O2 Sat by Pulse 99 98 97 Oximetry 05/01/25 05/01/25 05/01/25 09:00 10:02 10:29 Temperature Pulse Rate 75 78 108 H Respiratory 20 14 Rate Blood Pressure 141/84 129/87 O2 Sat by Pulse 5 L 95 Oximetry 05/01/25 05/01/25 05/01/25 10:39 11:00 11:30 Temperature Pulse Rate 92 80 97 Respiratory 18 18 18 Rate Blood Pressure 150/91 165/105 O2 Sat by Pulse 100 99 Oximetry 05/01/25 05/01/25 11:52 12:23 Temperature Pulse Rate 89 80 Respiratory 20 16 Rate Blood Pressure 175/100 162/97 O2 Sat by Pulse 98 98 Oximetry EKG Findings - EKG Results: EKG: interpreted by ERMD, sinus rhythm (Rate 75 bpm), normal QRS, normal ST/T - Blocks, Forgan, Hypertrophy, ST Abn: QRS axis and voltage: left axis deviation (-30 to -90) Medical Decision Making - Medical Decision Making Was pt. sent in by a medical professional or institution (, PA, POLYMER MATERIALS CONSULTANT, urgent care, hospital, or [facility]...) When possible be specific @ -[No] Did you speak to anyone other than the patient for history (EMS, parent, family, police, friend...)? What history was obtained from this source @ -[No] Did you review nursing and triage notes (agree or disagree)? Why? @ -[I reviewed and agree with nursing and triage notes] Were old charts reviewed (outside hosp., previous admission, EMS record, old EKG, old radiological studies, urgent care reports/EKG's, [facility] records)? Report findings @ -[Yes, old charts were reviewed] Differential Diagnosis (chest pain, altered mental status, abdominal pain women, abdominal pain men, vaginal bleeding, weakness, fever, dyspnea, syncope, headache, dizziness, GI bleed, back pain, seizure, CVA, palpatations, mental health, musculoskeletal)? @ -[Amphetamine Toxicity Anxiety Disorders Apnea, Sleep Cocaine-Related Cardiomyopathy Heart Failure Hyperthyroidism, Thyroid Storm, and Graves Disease Hypertrophic Cardiomyopathy Myocardial Infarction Phencyclidine Toxicity Primary Aldosteronism Stroke, Hemorrhagic Stroke, Ischemic EKG interpreted by me (3pts min.). @ -[I interpreted as above] X-rays interpreted by me (1pt min.). @ -[None done] CT interpreted by me (1pt min.). @ -[None done] U/S interpreted by me (1pt. min.). @ -[None done] What testing was considered but not performed or refused? (CT, X-rays, U/S, labs)? Why? @ -[None] What meds were considered but not given or refused? Why? @ -[None] Did you discuss the management of the patient with other professionals (professionals i.e. , PA, POLYMER MATERIALS CONSULTANT, lab, RT, psych nurse, social media senior associate, planning rn, teacher, learning officer, director of casework department)? Give summary @ -[No] Was smoking cessation discussed for >3mins.? @ -[No] Was critical care preformed (if so, how long)? @ -[No] Were there social determinants of health that impacted care today? How? (Homelessness, low income, unemployed, alcoholism, drug addiction, transportation, low edu. Level, literacy, decrease access to med. care, residential, rehab)? @ -[No] Was there de-escalation of care discussed even if they declined (Discuss DNR or withdrawal of care, Hospice)? DNR status @ -[No] What co-morbidities impacted this encounter? (DM, HTN, Smoking, COPD, CAD, Cancer, CVA, ARF, Chemo, Hep., AIDS, mental health diagnosis, sleep apnea, morbid obesity)? @ -[Hypertension Was patient admitted / discharged? Hospital course, mention meds given and route, prescriptions, significant lab abnormalities, going to OR and other pertinent info. @ -[Patient is 59-year-old woman whose beta-joelle had recently been stopped. It does appear that the patient having some rebound hypertension. She did have improvement with medication here, was feeling well and wanted to go home. Will have the patient resume beta-joelle until she is able to speak with her specialized developer again Undiagnosed new problem with uncertain prognosis? @ -[No] Drug Therapy requiring intensive monitoring for toxicity (Heparin, Nitro, Insulin, Cardizem)? @ -[No] Were any procedures done? @ -[No] Diagnosis/symptom? @ -[Acute on chronic hypertension Acute, or Chronic, or Acute on Chronic? @ -[Acute on chronic Uncomplicated (without systemic symptoms) or Complicated (systemic symptoms)? @ -[default] Side effects of treatment? @ -[No] Exacerbation, Progression, or Severe Exacerbation? @ -[No] Poses a threat to life or bodily function? How? (Chest pain, [place], [place], pneumonia, PE, COPD, DKA, ARF, appy, cholecystitis, CVA, Diverticulitis, Homicidal, Suicidal, threat to staff... and all critical care pts) @ -[No] All treatments are based on ideal body weight as in ED triage Disposition Clinical Impression: Hypertension Disposition: HOME SELF-CARE Condition: Good Instructions (If sedation given, give patient instructions): Chronic Hypertension (ED) Prescriptions: lisinopriL 2.5 mg PO DAILY #30 tablet Is patient prescribed a controlled substance at d/c from ED?: No Referrals: Dwight Aguirre DO [Primary Care Provider] - 1-2 days
[2025-05-01] MEDS: LABETALOL 5 MG/ML VIAL MDV IVP STA ×2 (06:29→11:32)
[2025-05-01 07:21] VITALS: TEMP 98.3
[2025-05-01] MEDS: SODIUM CHLORIDE 0.9% 500 ML 500 ML IV ONE (11:34)
[2025-05-01] MEDS: LORazepam 1 MG/0.5 ML VIAL IV STA (11:34)
[2025-05-01 12:28] VITALS: BP 162/97; PULSE 80; RESP 16
== END 2025-05-01 12:35 | disposition home or self-care (01) ==
LOC: EC 05:42
DX: I10 Essential (primary) hypertension (principal); F17.200 Nicotine dependence, unspecified, uncomplicated; Z88.1 Allergy status to other antibiotic agents; Z88.2 Allergy status to sulfonamides; Z88.5 Allergy status to narcotic agent; Z88.8 Allergy status to other drugs, medicaments and biological substances
CPT/HCPCS: 99284; 96374; 96376; J1920